=== PATIENT | male | born 1950 | race Caucasian/White ===

== ENCOUNTER 2019-02-23 13:49 | Inpatient (IN) ==
[2019-02-23 15:07] LABS: BASO# 0.03 X1000 (0.0-0.2); BASO% 0.2 % (0.0-0.8); EOS# 0.15 X1000 (0.0-0.7); EOS% 1.1 % (0.0-10.0); HEMATOCRIT 44.1 % (42.0-52.0); HEMOGLOBIN 15.1 g/dL (14.0-18.0); IMM GRAN# 0.06 X1000 (0.0-0.04); IMM GRAN% 0.4 % (0.0-0.5); LYMPH# 1.06 X1000 (1.2-3.4); LYMPH% 7.8 % (20.5-51.1); MCH 29.2 PG (27-31); MCHC 34.2 g/dL (33-37); MCV 85.1 FL (81-99); MONO% 5.9 % (1.7-9.3); MPV 10.8 FL (7.4-10.4); NEUT# 11.54 X1000 (1.4-6.5); NEUT% 84.6 % (42.2-75.2); PLT 286 X1000 (130-400); RBC 5.18 XMIL (4.7-6.1); RDW 14.6 % (11.5-14.5); WBC 13.64 X1000 (4.8-10.8)
[2019-02-23 15:23] LABS: INR 0.98; PROTIME 13.5 Seconds (11.0-16.0)
[2019-02-23 15:24] LABS: PTT 29.2 Seconds (22.3-41.8)
[2019-02-23 15:27] LABS: AGAP 13; ALKALINE PHOSPHATASE 91 U/L (32-122); BUN 16 mg/dL (8-22); CALCIUM 9.9 mg/dL (8.8-10.2); CHLORIDE 91 mmol/L (98-107); COSMO 271; CREATININE 0.9 mg/dL (0.7-1.2); ESTIMATED GFR > 60; GLUCOSE 155 mg/dL (70-104); GOT 17 U/L (10-34); GPT 16 U/L (10-44); POTASSIUM 3.4 mmol/L (3.5-5.1); SODIUM 133 mmol/L (136-145); TCO2 29 mmol/L (25-35); TOTAL PROTEIN 7.6 g/dL (6.3-8.3)
[2019-02-23 15:58] LABS: BILIRUBIN URINE NEGATIVE (NEGATIVE); BLOOD URINE NEGATIVE (NEGATIVE); CLARITY CLEAR (CLEAR); COLOR YELLOW; GLUCOSE URINE NEGATIVE (NEGATIVE); KETONE URINE TRACE mg/dL (NEGATIVE); LEUKOCYTES URINE TRACE (NEGATIVE); NITRITE URINE NEGATIVE (NEGATIVE); PROTEIN URINE 1+(30 mg/dL) mg/dL (NEGATIVE); UROBILINOGEN URINE NORMAL
--- NOTE | 2019-02-23 16:07 | Diag Imaging Result Doc PS360 ---
EXAM: CT ABD/PELVIS W/IV CONT ONLY HISTORY: colitis TECHNIQUE: CT abdomen and pelvis with intravenous contrast COMPARISON: 08/13/2012 FINDINGS: No pleural effusions. The gallbladder has been removed. Mild fatty infiltration of the liver. Normal spleen and pancreas. There are surgical clips in the right adrenal bed. There is a 1.5 cm left adrenal nodule. There are small renal cysts. No hydronephrosis. Prominent atherosclerosis. The entire colon is distended with fluid and air. There is a left periumbilical hernia containing small bowel loops. One of the loops entering this is not dilated where is the other adjacent loops aren't dilated. No definite wall thickening. The distal small bowel loops are not distended. No abscess. IMPRESSION: At least partial small bowel obstruction and possible incarceration within the hernia in the left lower quadrant. This report was discussed with Mitchel Wheeler in the emergency room on 02/23/2019 at 4:05 PM and was readback. This exam was performed using automated exposure control, adjustment of mA or kV according to patient size, and/or use of iterative reconstruction technique. Electronically signed by Tim Banda 02/23/2019 4:04 PM
[2019-02-23 16:11] LABS: URINE SOURCE CLEAN CATCH
[2019-02-23 16:13] LABS: URINE BACTERIA NEGATIVE /HFP; URINE CAST GRANULAR PRESENT /LPF; URINE CRYSTAL NONE SEEN /HPF; URINE EPITHELIAL CELLS <10 /HPF (<10); URINE RBC <10 /HPF (<10); URINE YEAST NONE SEEN /HPF
[2019-02-23] MEDS ORDERED: 1/2 NS + KCL 20 MEQ 1,000 ML IV SCH (20:00)
[2019-02-23] MEDS: NORCO-10 PO PRN (20:17)
[2019-02-24] MEDS ORDERED: CALMOSEPTINE OINTMENT TOP PRN (00:38)
[2019-02-24] MEDS: NORCO-10 PO PRN ×3 (04:30→20:07)
--- NOTE | 2019-02-24 10:55 | EKG Report ---
Test Performed on : 02/23/2019 8:38:58 PM Test Reason : HTN Blood Pressure : / mmHG Vent. Rate : 116 BPM Atrial Rate : 117 BPM P-R Int : 230 ms QRS Dur : 108 ms QT Int : 370 ms P-R-T Axes : 050 009 053 degrees QTc Int : 514 ms Undetermined rhythm Otherwise normal ECG When compared with ECG of 07-AUG-2012 06:53, Current undetermined rhythm precludes rhythm comparison, needs review Non-specific change in ST segment in Lateral leads T wave inversion no longer evident in Inferior leads Nonspecific T wave abnormality now evident in Lateral leads Confirmed by Chun BONE, Derick Dozier ([id number]) on 02/25/2019 8:20:21 AM
[2019-02-24] MEDS ORDERED: XENADERM OINTMENT TOP SCH (14:00)
--- NOTE | 2019-02-24 14:41 | INFECTIOUS DISEASE CONSULT REP ---
DATE: 02/24/2019 CONCLUSION: The patient has cellulitis of both legs. The left leg seems to be more involved than the right leg. The patient I think also suffers from peripheral vascular disease. The patient's leg cellulitis has gotten worse in the past month. RECOMMENDATIONS: I have ordered Ancef 2 g IV every 8 hours. I told the patient to elevate his legs as much as possible. PRESENT ILLNESS: The patient says approximately a month ago he started having increasing erythema and pain in his left leg to a much greater amount than the right leg. He has had areas that were draining and now brown eschars are present on the left leg. The patient has been admitted to the hospital by Dr. Cline. RECOMMENDATIONS: I have started the patient on Ancef 2 g IV every 8 hours. I told the patient to elevate his legs as much as possible. Laboratory studies show CBC with a white count of 13,640, hemoglobin 15.1 and platelet count 286,000. Creatinine is 0.9. GFR is greater than 60. Liver function studies are normal. CT scan of the abdomen and pelvis shows partial small bowel obstruction and partial incarceration of the hernia in the left lower quadrant. PAST MEDICAL HISTORY/REVIEW OF SYSTEMS: Eyes and ears: Patient has decreased hearing. He tells me his vision is okay. Neck: No stiffness. Respiratory: No cough or dyspnea. Cardiac: No chest pain or palpitations. GI: No nausea, vomiting, or diarrhea. The patient told me that he has a long-term problem with constipation. Genitourinary: No dysuria or flank pain. Integument: Patient has developed increasing erythema as compared to the right leg. Neurologic: The patient has not had seizures. The patient has decreased history of his medical condition. PREVIOUS HOSPITALIZATIONS AND OPERATIONS: He has had a partial colectomy. MEDICAL DISEASES: Positive for hypertension and gastroesophageal reflux disease. INFECTIOUS DISEASE HISTORY: Negative for pneumonia and UTI. FAMILY HISTORY: Positive for peripheral vascular disease and cancer. SOCIAL HISTORY: [place] . He has a dog as a pet. The patient smokes cigarettes but he does not drink alcoholic beverage or use illicit drugs. ALLERGIES: His chart lists no known drug allergies. HOME MEDICATIONS: Include Elavil, buspirone, Neurontin, hydrocodone, omeprazole and triamterene/hydrochlorothiazide. PHYSICAL EXAMINATION: Vital Signs: The temperature is 98.5 degrees, pulse 115, respirations 18, blood pressure 146/112. The patient weighs 231 pounds. General: This is an obese elderly male. He is in no acute distress. Head/eyes/ears/nose/throat: He is edentulous. He can hear my spoken words. He can see near objects. Does not have any white coating on his tongue. Neck: There is no pain when he moves his neck. Lungs: Clear to auscultation. Cardiovascular: Heart rate is irregular. Abdomen: Protuberant but soft and nontender. Extremities: The patient's left leg was more erythematous than the right leg. There also was dry brown eschars on the left leg. Neurologic: The patient is awake. He can move his extremities. There is no tremor. His memory as regarding his medical history was decreased. Thank you for the consult. cc: MD Rudy Baires MD MTDKathleen
[2019-02-24] MEDS: KEFZOL 2 GM/D5W 2 GM/50 ML IVPB IV SCH (15:34)
[2019-02-24] MEDS ORDERED: LASIX PO PRN (19:30)
[2019-02-24] MEDS ORDERED: KLOR-CON PO PRN (19:30)
[2019-02-24] MEDS: BUSPAR PO SCH (20:09)
[2019-02-24] MEDS: ROBAXIN PO SCH (20:09)
--- NOTE | 2019-02-24 20:21 | GASTROENTEROLOGY CONSULTATION ---
DATE: 02/24/2019 REASON FOR CONSULTATION: hemorrhoids, history of TVA s/p left hemicolectomy HPI: Mr. Clark is a 68 year old man with history of HTN, HLD, GERD, obesity, h/o pheochromocytoma s/p right adrenalectomy (1999), CCY, TVA s/p left hemicolectomy (2010) c/b anastomotic stricture requiring ex-lap and revision (2011) who presented with symptomatic hemorrhoids. The patient reports having constipation with mild straining and perianal tenderness and bleeding from external hemorrhoids for "a long while". He reports having a bowel movement once daily. No N/V/F, CP, SOB, melena. He takes Clearlax at home, which helps. He has not tried any treatment for his hemorrhoids. He reports that his last colonoscopy was done prior to his last surgery in 2011. He was followed by Dr. Torrez as outpatient. Of note, patient also had had RLE ulceration/wound and leg discoloration for the last 5-6 weeks. ROS: as per HPI, otherwise 12 point ROS negative PMH: HTN, HLD, GERD, obesity, h/o pheochromocytoma h/o TVA, tobacco abuse, remote h/o ETOH abuse with DTs PSH: CCY, right adrenalectomy (1999), s/p left hemicolectomy (2010), enterotomy, ex-lap and colo-colonic anastomosis revision (2011) FH: No FHx of GI malignancies SH: smokes 1ppd, prior ETOH abuse; no drugs MEDS: potassium, methocarbamol, nystatin ointment, miralax, Spiriva, gabapentin, triamcinolone, fluconazole, furosemide, hydrocodone/APAP, Elavil, omeprazole, buspirone, triamterene, hydrochlorothiazide. ALL: NKDA PE: VS: T 98.9 HR 98 RR 15 BP 152/80 O2 sat 94% GEN: awake, alert, NAD HEENT: anicteric, MMM NECK: thick neck, no jvd CV: RRR, no mrg PULM: CTAB, no wheezing ABD: mildline exlap scar, left lower abdominal wall ventral hernia that is nontender, abdomen mildly distended and tympanic, BS present, NT, no ascites EXT: b/l LEs cool to touch, L>R with left purplish discoloration with large ulceration that well-demarcated on the inner leg concerning for ischemia NEURO: nonfocal RECTAL: medium size non-thrombosed external hemorrhoids that are exquisitely tender without evidence of anal fissure. Unable to do BERTHA secondary to pain. no blood LABS: Na 133 K 3.4 Cl 91 BUN 16 glu 155 K 3.4 CO2 29 Cr 0.9 WBC 13.6 Hgb 15.1 plts 286 lactate 2.0 LFTs WNL IMAGING: EXAM: CT ABD/PELVIS W/IV CONT ONLY HISTORY: colitis TECHNIQUE: CT abdomen and pelvis with intravenous contrast COMPARISON: 08/13/2012 FINDINGS: No pleural effusions. The gallbladder has been removed. Mild fatty infiltration of the liver. Normal spleen and pancreas. There are surgical clips in the right adrenal bed. There is a 1.5 cm left adrenal nodule. There are small renal cysts. No hydronephrosis. Prominent atherosclerosis. The entire colon is distended with fluid and air. There is a left periumbilical hernia containing small bowel loops. One of the loops entering this is not dilated where is the other adjacent loops aren't dilated. No definite wall thickening. The distal small bowel loops are not distended. No abscess. IMPRESSION: At least partial small bowel obstruction and possible incarceration within the hernia in the left lower quadrant. A/P: Mr. 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 CTAP shows diffuse dilated colon and periumbilical hernia containing SB. Patient does not have obstructive symptoms and primarily is concerned about his hemorrhoids. He also has leukocytosis likely from ischemic LLE with ulceration. ID consulted and patient is on antibiotics #Dilated colon: concerning for colo-colonic pseudo-obstruction - recommend miralax BID, trending abdominal exam #Symptomatic hemorrhoids - recommend topical hydrocortisone BID - bowel regimen as above, avoid constipation, discourage prolonged toileting, straining - surgery following #History of TVA: previously resected - patient will need surveillance colonoscopy as outpatient when acoute issues resolve; - no evidence of anemia #LLQ ulceration: 2/2 ischemic limb - defer mgmt to surgery - ID following #Leukocytosis: likely from wound Thank you for this consult. Will follow with you cc: Rudy Cline MD MTDD
[2019-02-24] MEDS ORDERED: NORCO-10 PO SCH (21:00)
[2019-02-25] MEDS: KEFZOL 2 GM/D5W 2 GM/50 ML IVPB IV SCH ×4 (00:34→16:49)
[2019-02-25] MEDS: KENALOG 0.1% CREAM TOP SCH ×3 (00:47→21:50)
[2019-02-25] MEDS: MYCOSTATIN OINTMENT TOP SCH ×3 (00:48→22:24)
[2019-02-25] MEDS: NORCO-10 PO PRN ×5 (01:49→22:23)
[2019-02-25] MEDS: PRILOSEC PO SCH (06:53)
[2019-02-25] MEDS ORDERED: MIRALAX PO SCH (09:00)
[2019-02-25] MEDS: DIFLUCAN PO SCH (09:07)
[2019-02-25] MEDS: DYAZIDE PO SCH (09:07)
[2019-02-25] MEDS: NEURONTIN PO SCH ×3 (09:07→18:18)
[2019-02-25] MEDS: BUSPAR PO SCH ×2 (09:07→22:23)
[2019-02-25] MEDS: MIRALAX PO SCH ×2 (09:08→22:24)
--- NOTE | 2019-02-25 10:34 | INFECTIOUS DISEASE PROGRESS NO ---
DATE: 02/25/2019 PRESENT ILLNESS: Mr. Clark is being treated for cellulitis of his lower extremities with the left leg worse than the right. MEDICATIONS: He has been started on Ancef 2 g IV every 8 hours. PHYSICAL EXAMINATION: Vital Signs: Temperature is 98.7 degrees, pulse rate 69, respiratory rate 20, blood pressure 142/90, O2 saturation is 97% on room air. General: This is a morbidly obese, chronically ill-appearing, elderly gentleman. He is sitting up in the chair, currently in no acute distress. HEENT: Atraumatic, normocephalic. Oral mucous membranes are pink and moist. Conjunctivae are pink. Neck: Supple. Trachea is midline. Cardiovascular: Heart rate is regular. Respiratory: Lung sounds are clear to auscultation bilaterally. Abdomen: Soft, obese, nontender on palpation. Bowel sounds are active. Neurologic: He is awake, alert, oriented, and able to move all extremities independently. Integumentary: He has an erythematous rash noted to his bilateral lower extremities. The rash to the left starts at the knee down with some open areas that are scabby abrasions to the medial calf. There is less erythema discoloration on the right, with small areas of scabby abrasions. LABORATORY AND X-RAY: None available today. Blood and urine cultures have been taken. Blood work is preliminary. Urine shows mixed marito on the final report. No imaging reports today. ASSESSMENT AND PLAN: Mr. Clark is being treated for bilateral lower extremity cellulitis using Ancef, which we will continue at this time. There has been an order put in for arterial studies of his lower extremities and he has been followed by Dr. Hoskins. He has been instructed to keep his lower extremities elevated as often as possible. However, he states the pain is worse with elevation. I have gone ahead and put in blood work for in the morning. These plans have been discussed with and recommended by Dr. Newsome. COMORBIDITIES: for Mr. Clark include that he is morbidly obese and elderly with gastroesophageal reflux disease and cigarette smoking. Dictated by JAIR Huertas for Rodolfo Newsome MD cc: MD Rudy Baires MD [facility]ERKathleen
[2019-02-25] MEDS: HYDROCORTISONE 1% CREAM TOP SCH (12:40)
[2019-02-25] MEDS: ROBAXIN PO SCH (22:24)
--- NOTE | 2019-02-25 23:48 | PROVIDER PROGRESS NOTE ---
Progress Note SUBJECTIVE: No acute overnight events. Afebrile. No N/V/F, CP, SOB. He reports good bowel movement yesterday without rectal bleeding. He continues to complain of hemorrhoid discomfort. No abdominal pain. Tolerating clear liquid diet. OBJECTIVE: Last Vital Signs Temp 98.3 F 02/25/19 22:46 Pulse 49 L 02/25/19 22:46 Resp 18 02/25/19 22:46 BP 154/57 02/25/19 22:46 Pulse Ox 98 02/25/19 22:46 Height 5 ft 2 in Weight 231 lb 11.2 oz GEN: awake, alert, NAD HEENT: anicteric, MMM NECK: thick neck, no jvd CV: RRR, no mrg PULM: CTAB, no wheezing ABD: mildline exlap scar, left lower abdominal wall ventral hernia that is nontender, abdomen mildly distended and tympanic, BS present, NT, no ascites EXT: b/l LEs cool to touch, L>R with left purplish discoloration with large ulceration that well-demarcated on the inner leg concerning for ischemia NEURO: nonfocal LABS: none IMAGING: A/P: Mr. 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 CTAP shows diffuse dilated colon and periumbilical hernia containing SB without definitive obstruction. ID following for LLE infection #Dilated colon: concerning for colo-colonic pseudo-obstruction - continue miralax BID, trending abdominal exam - obtain KUB in AM to reassess -start GI soft diet #Symptomatic hemorrhoids - continue topical hydrocortisone BID - bowel regimen as above, avoid constipation, discourage prolonged toileting, straining - surgery following #History of TVA: previously resected - patient will need surveillance colonoscopy as outpatient when acute issues resolve - no evidence of anemia - labs in AM #LLQ ulceration: 2/2 ischemic limb - defer mgmt to surgery - ID following #Leukocytosis: likely from wound; no labs today Will follow with you
[2019-02-26] MEDS: HYDROCORTISONE 1% CREAM TOP SCH ×2 (00:39→12:00)
[2019-02-26] MEDS: KEFZOL 2 GM/D5W 2 GM/50 ML IVPB IV SCH ×4 (00:58→23:39)
[2019-02-26] MEDS: PRILOSEC PO SCH (06:35)
[2019-02-26] MEDS: NORCO-10 PO PRN ×4 (06:38→19:39)
[2019-02-26 07:20] LABS: BASO# 0.02 X1000 (0.0-0.2); BASO% 0.3 % (0.0-0.8); EOS# 0.18 X1000 (0.0-0.7); EOS% 2.7 % (0.0-10.0); HEMATOCRIT 42.7 % (42.0-52.0); HEMOGLOBIN 14.4 g/dL (14.0-18.0); IMM GRAN# 0.05 X1000 (0.0-0.04); IMM GRAN% 0.7 % (0.0-0.5); LYMPH# 1.14 X1000 (1.2-3.4); LYMPH% 16.8 % (20.5-51.1); MCH 28.9 PG (27-31); MCHC 33.7 g/dL (33-37); MCV 85.7 FL (81-99); MONO% 8.9 % (1.7-9.3); MPV 10.8 FL (7.4-10.4); NEUT# 4.78 X1000 (1.4-6.5); NEUT% 70.6 % (42.2-75.2); PLT 250 X1000 (130-400); RBC 4.98 XMIL (4.7-6.1); RDW 14.5 % (11.5-14.5); WBC 6.77 X1000 (4.8-10.8)
[2019-02-26 07:38] LABS: AGAP 13; BUN 8 mg/dL (8-22); CALCIUM 9.4 mg/dL (8.8-10.2); CHLORIDE 95 mmol/L (98-107); COSMO 272; CREATININE 0.7 mg/dL (0.7-1.2); ESTIMATED GFR > 60; GLUCOSE 93 mg/dL (70-104); POTASSIUM 2.9 mmol/L (3.5-5.1); SODIUM 137 mmol/L (136-145); TCO2 29 mmol/L (25-35)
[2019-02-26] MEDS: DIFLUCAN PO SCH (08:17)
[2019-02-26] MEDS: BUSPAR PO SCH ×2 (08:17→21:26)
[2019-02-26] MEDS: DYAZIDE PO SCH (08:17)
[2019-02-26] MEDS: NEURONTIN PO SCH ×3 (08:17→21:26)
[2019-02-26] MEDS ORDERED: POTASSIUM CHLORIDE 10% LIQUID PO SCH (09:00)
[2019-02-26] MEDS ORDERED: LOVENOX 1 MG/KG SUBQ SCH (09:30)
--- NOTE | 2019-02-26 10:52 | Diag Imaging Result Doc PS360 ---
EXAM: KUB ABDOMEN HISTORY: evaluate for constipation or obstruction TECHNIQUE: Abdomen four views COMPARISON: None. FINDINGS: There are multiple air distended loops of bowel throughout the abdomen. Long-standing arthritic changes to the hips and degenerative changes to the spine. Moderate to prominent atherosclerosis. There are multiple surgical clips in the right upper quadrant. IMPRESSION: Findings suspicious for a distal obstruction. Electronically signed by Tim Banda 02/26/2019 10:49 AM
[2019-02-26] MEDS: MIRALAX PO SCH ×2 (11:12→21:27)
[2019-02-26] MEDS: METAMUCIL POWDER PACKET PO SCH ×2 (11:12→21:27)
[2019-02-26] MEDS: POTASSIUM CHLORIDE 10% LIQUID PO SCH ×3 (11:12→21:27)
[2019-02-26] MEDS: LOVENOX SUBQ SCH (11:13)
--- NOTE | 2019-02-26 13:02 | INFECTIOUS DISEASE PROGRESS NO ---
DATE: 02/26/2019 PRESENT ILLNESS: The patient has cellulitis of both of his legs. MEDICATIONS: This is day 1 of treatment with cefazolin. PHYSICAL EXAMINATION: Vital Signs: Temperature is 98.9 degrees, pulse 52, respirations 16, blood pressure 152/67. General: This is a morbidly obese, chronically ill-appearing, elderly gentleman. He is in no acute distress. Head, eyes, ears, nose, and throat: He can hear my spoken words and see near objects. He does not have any white patches on his tongue. Neck: He does not comply complain of any pain when he moves his neck. Lungs: Clear to auscultation. Cardiovascular: Heart rate is regular. Abdomen: Soft and protuberant. It is not tender. Extremities: The patient still has erythema and edema of both legs with some small eschars present as well. Neurologic: The patient is awake. He can move his extremities. He is barely able to walk on his own. There is no tremor. LAB AND X-RAY: CBC shows a white count of 6670, hemoglobin 14.4, and platelet count 250,000. Creatinine is 0.7, GFR is greater than 60. Urine culture is mixed. Blood cultures are sterile. The patient's urine grew a mixed marito. Blood cultures are sterile after 48 hours. ASSESSMENT AND PLAN: The patient has bilateral leg cellulitis. We have requested him several times to keep his legs elevated but he has been reluctant to do it. I am going to continue with cefazolin. COMORBIDITIES: He is morbidly obese. He is elderly. He has gastroesophageal reflux disease, and he continues to smoke cigarettes. cc: MD Rudy Baires MD
--- NOTE | 2019-02-26 13:26 | GASTROENTEROLOGY PROGRESS NOTE ---
DATE: 02/26/2019 SUBJECTIVE: The patient resting in chair. He is eating his breakfast. He complains of pain at the anus, which he attributes to hemorrhoids. He also has abdominal discomfort which is stable. He has pain in his left leg, which is stable. The patient denies any fevers, rigors, or chills. He denies any blood in the stools today. His last bowel movement was this morning. OBJECTIVE: Vital signs: Temperature 98.9, pulse rate 52, respiratory rate 16, blood pressure 152/67, saturating 98% on room air. Weight: Body weight of 231 pounds 11.2 ounces. BMI of 42 kg/m2. General: Patient is morbidly obese. Sitting in chair, in no acute distress. HEENT: No pallor. No icterus. Pupils equal, reactive to light. Neck: Supple. Abdomen: Obese, discomfort in the umbilical region. No rebound or guarding. He has a left lower abdominal wall ventral hernia that is nontender. Extremities: He has discoloration of the left lower extremity. It appears to be purplish discoloration with a large ulceration that is well demarcated on the inner leg, concerning for ischemia. Neurological: Alert, awake, oriented x3. DIAGNOSTIC STUDIES: Hemoglobin 14.4, hematocrit 42.7, white count 6.7, platelet count 250,000. Sodium 137, potassium 2.9, chloride 95, bicarbonate 29, anion gap of 13, BUN of 8, creatinine 0.7, glucose of 93, calcium 9.4, AST 17, ALT 16, alkaline phosphatase 91, total protein 7.6, albumin of 4, prealbumin of 14.8. Urine culture showing mixed marito. Blood culture x2 negative at 48 hours from 02/23/2019. IMPRESSION AND PLAN: 1. Abdominal wall hernia. This is being monitored per Dr. Cline. 2. Ischemic lower extremity. Dr. Cline is managing. He is awaiting consult from Dr. Hoskins. 3. History of tubulovillous adenoma requiring colon resection many years ago. He will need surveillance colonoscopy when acute issues have resolved. 4. Symptomatic hemorrhoids causing anal discomfort. We will continue on hydrocortisone 2.5% cream per rectal b.i.d. We will start him on Metamucil 1 tablespoon p.o. b.i.d. He will continue MiraLAX as well. He was counseled to avoid straining. 5. Dilated colon on CT scan, likely from colonic pseudoobstruction. We will continue MiraLAX b.i.d. We will continue on GI soft diet. He is moving his bowels. A KUB for today has been ordered, but has not been done yet. 6. Obesity. Patient counseled to lose weight. 7. Smoker. Patient counseled to quit smoking. 8. Gastrointestinal prophylaxis with Prilosec once daily. 9. Deep vein thrombosis prophylaxis with Lovenox. He is on full-strength Lovenox 100 mg subcutaneous daily. 10. He is also on antibiotics per the primary team and the infectious disease team. The above plan of care was discussed with the patient, and all questions were answered. Please call us with any further questions. I also spoke with Dr. Cline. cc: MD Rudy Hinton MD Zz Unknown
[2019-02-26] MEDS: D5 1/2 NS 1,000 ML IV SCH (14:08)
[2019-02-26] MEDS: KENALOG 0.1% CREAM TOP SCH ×2 (15:34→23:39)
[2019-02-26] MEDS: MYCOSTATIN OINTMENT TOP SCH ×2 (15:35→23:38)
[2019-02-26] MEDS: ROBAXIN PO SCH (21:26)
[2019-02-26] MEDS: ELAVIL PO PRN (21:41)
[2019-02-27] MEDS: HYDROCORTISONE 1% CREAM TOP SCH ×2 (02:03→12:00)
[2019-02-27] MEDS: NORCO-10 PO PRN ×4 (04:37→20:55)
[2019-02-27] MEDS: PRILOSEC PO SCH ×2 (04:37→10:58)
--- NOTE | 2019-02-27 08:10 | VASCULAR LAB ---
PROCEDURE NAME: Arterial Bilateral Legs - 02/24/2019 MEDICAL TRANSCRIPTION RADIOLOGY: [place] REQUESTING PHYSICIAN: Dr. Cline INDICATION: Ulcers, redness of left leg. FINDINGS: Brachial on the right is 160, on the left is 162. Low thigh on the right is 116, on the left is 133. Calf on the right is 87, left is 115. DP on the right is 86, on the left is 99. PT on the right is absent, on the left is 93. Toe pressure on the right is 57, on the left is 64. DAYAN on the right is 0.53, on the left is 0.61. Total pressure on the right is 0.35, on the left is 0.40. IMPRESSION: There is significant depression in the flow noted at the level of the calf suggesting a distal SFA or popliteal lesion with blunting of the waveforms distally. There is evidence of more mild disease proximally, but the depression of the waveforms at the ankles would correlate to a moderate atherosclerotic burden and would potentially impede wound healing. I would recommend correlation with angiography as clinically indicated. cc: MD Rudy Ledesma MD
[2019-02-27] MEDS: KEFZOL 2 GM/D5W 2 GM/50 ML IVPB IV SCH (09:10)
[2019-02-27] MEDS: DYAZIDE PO SCH (09:11)
[2019-02-27] MEDS: DIFLUCAN PO SCH (09:11)
[2019-02-27] MEDS: NEURONTIN PO SCH ×3 (09:11→20:49)
[2019-02-27] MEDS: BUSPAR PO SCH ×2 (09:11→20:49)
[2019-02-27] MEDS: LOVENOX SUBQ SCH (09:12)
[2019-02-27] MEDS: METAMUCIL POWDER PACKET PO SCH ×2 (09:12→20:49)
[2019-02-27] MEDS: MIRALAX PO SCH ×2 (09:12→20:49)
--- NOTE | 2019-02-27 10:02 | PROVIDER PROGRESS NOTE ---
Progress Note SUBJECTIVE: No acute overnight events. Afebrile. No N/V/F, SOB, CP. He reports LLE pain. He also complains of perianal pain secondary to hemorrhoids, which is making if difficult for him have bowel movements. He had normal BM yesterday. He reports not receiving topical therapy for hemorrhoids. OBJECTIVE: Last Vital Signs Temp 97.5 F L 02/27/19 07:31 Pulse 54 L 02/27/19 07:31 Resp 18 02/27/19 07:31 BP 147/72 02/27/19 07:31 Pulse Ox 96 02/27/19 07:31 Height 5 ft 2 in Weight 231 lb 11.2 oz GEN: awake, alert, NAD HEENT: anicteric, MMM NECK: thick neck, no jvd CV: RRR, no mrg PULM: CTAB, no wheezing ABD: mildline exlap scar, left lower abdominal wall ventral hernia that is nontender, abdomen mildly distended and tympanic, BS present, NT, no ascites EXT: b/l LEs cool to touch, L>R with left purplish discoloration with large ulceration that well-demarcated on the inner leg NEURO: nonfocal LABS: none today IMAGING: A/P: Mr. 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 CTAP shows diffuse dilated colon concerning for distal obstruction. ID following for LLE infection. Patient has distal flow in LLE seen on DAYAN. #Dilated colon: concerning for colo-colonic pseudo-obstruction - continue miralax BID, trending abdominal exam -cont GI soft diet #Symptomatic hemorrhoids - patient needs topical hydrocortisone BID for hemorrhoids. He has not been getting it - bowel regimen as above, avoid constipation, discourage prolonged toileting, straining - surgery following - will consider sigmoidoscopy if patient does not have improvement over the weekend #History of TVA: previously resected - patient will need surveillance colonoscopy as outpatient when acute issues resolve - no evidence of anemia - labs in AM #LLQ ulceration: 2/2 ischemic limb - defer mgmt to surgery - ID following #Leukocytosis: 2/2 LLE infection; normal WBC yesterday Will follow with you. Please call with questions
[2019-02-27] MEDS: D5 1/2 NS 1,000 ML IV SCH (17:56)
[2019-02-27] MEDS: ELAVIL PO PRN (20:49)
[2019-02-27] MEDS: ROBAXIN PO SCH (20:49)
[2019-02-27] MEDS: KENALOG 0.1% CREAM TOP SCH (20:57)
[2019-02-28] MEDS: MYCOSTATIN OINTMENT TOP SCH ×3 (04:09→20:32)
[2019-02-28] MEDS: HYDROCORTISONE 1% CREAM TOP SCH ×3 (04:10→23:44)
[2019-02-28] MEDS: NORCO-10 PO PRN ×4 (07:21→20:31)
[2019-02-28] MEDS: PRILOSEC PO SCH (07:46)
[2019-02-28] MEDS: MIRALAX PO SCH ×2 (09:46→20:31)
[2019-02-28] MEDS: BUSPAR PO SCH ×2 (09:46→20:30)
[2019-02-28] MEDS: DIFLUCAN PO SCH (09:46)
[2019-02-28] MEDS: NEURONTIN PO SCH ×3 (09:46→20:30)
[2019-02-28] MEDS: DYAZIDE PO SCH (09:46)
[2019-02-28] MEDS: METAMUCIL POWDER PACKET PO SCH ×2 (09:46→20:31)
[2019-02-28] MEDS: LOVENOX SUBQ SCH (09:46)
[2019-02-28] MEDS: KENALOG 0.1% CREAM TOP SCH ×2 (09:47→20:32)
[2019-02-28] MEDS: KEFZOL 2 GM/D5W 2 GM/50 ML IVPB IV SCH ×2 (09:57→18:14)
--- NOTE | 2019-02-28 12:16 | Carotid Study ---
DATE: 02/24/2019 PROCEDURE: Carotid duplex imaging. REFERRING PHYSICIAN: Dr. Cline INTERPRETING PHYSICIAN: Dr. Marks TECH: [place] INDICATIONS: Peripheral vascular disease, high risk for carotid stenosis. OBSERVED DATA RIGHT LEFT Brachial Blood Pressure Carotid Pulse Bruits: Carotid/Sub DIAGRAM OF ULTRASOUND IMAGING R L RIGHT INT EXT INT EXT LEFT Saúl (cm/s) Saúl (cm/s) Subclavian 83/0 Subclavian 119/0 CCA Proximal 141/17 CCA Proximal 149/16 CCA Distal 103/14 CCA Distal 97/16 Bulb 86/18 Bulb 99/14 ICA Proximal 69/15 ICA Proximal 113/16 ICA Mid 82/20 ICA Mid 90/19 ICA Distal 58/17 ICA Distal 108/22 ECA 146/7 ECA 139/10 Vertebral 63/17 A Vertebral 50/8 A ICA/CCA Ratio 0.5 ICA/CCA Ratio 0.75 % Stenosis 0 to 39 % Stenosis 40 to 59 PHYSICIAN INTERPRETATION: There are no obvious atherosclerotic changes noted on the right. The internal carotid arteries are tortuous bilaterally. In the left, although no visible atherosclerotic changes on the study, there is an elevation in the proximal internal carotid artery at 113 cm per second that would technically correlate to a 40% to 59% stenosis. However, I suspect this was related to tortuosity with no significant atherosclerotic changes. I would recommend continued surveillance of this. cc: MD Rudy Ledesma MD
[2019-02-28] MEDS: ZOFRAN IV PRN (14:45)
--- NOTE | 2019-02-28 14:57 | INFECTIOUS DISEASE PROGRESS NO ---
DATE: 02/28/2019 PRESENT ILLNESS: The patient has cellulitis of both legs. MEDICATIONS: This is day 3 of treatment with cefazolin. PHYSICAL EXAMINATION: Vital Signs: Temperature is 97.6 degrees, pulse 113, respirations 20, blood pressure 159/82. General: This is a morbidly obese, chronically ill-appearing, elderly male. He is in no acute distress. Head, eyes, ears, nose, and throat: He can hear my spoken words and see near objects. He does not have any white coating on his tongue. Neck: He does not complain of pain when he moves his neck. Lungs: Clear to auscultation. Cardiovascular: Heart rate is regular. Abdomen: Soft and somewhat protuberant. It is not tender. Extremities: The patient continues to have erythema, edema, and he also has some eschars which are dry. He continues not to elevate his legs, even though I have discussed with him that it would be best to elevate his legs to get rid of the cellulitis he has in them. Neurologic: The patient is awake. He can move his extremities. There is no tremor. LAB AND X-RAY: CBC shows a white count of 6770, hemoglobin 14.4, platelet count 250,000. Creatinine is 0.9. GFR is greater than 60. Urine shows a mixed growth. Blood cultures are sterile. ASSESSMENT AND PLAN: Patient has bilateral leg cellulitis. I am going to continue Ancef and I explained to him that it would be better to elevate his legs rather than not elevating them at all. COMORBIDITIES: Morbid obesity, the patient is elderly, he has gastroesophageal reflux disease and he is a cigarette smoker. cc: MD Rudy Baires MD
[2019-02-28] MEDS: ROBAXIN PO SCH (20:30)
[2019-03-01] MEDS: KEFZOL 2 GM/D5W 2 GM/50 ML IVPB IV SCH ×4 (00:52→17:00)
[2019-03-01] MEDS: NORCO-10 PO PRN ×4 (00:54→20:52)
[2019-03-01 06:52] LABS: BASO# 0.02 X1000 (0.0-0.2); BASO% 0.1 % (0.0-0.8); EOS# 0.13 X1000 (0.0-0.7); EOS% 0.9 % (0.0-10.0); HEMATOCRIT 43.7 % (42.0-52.0); HEMOGLOBIN 14.4 g/dL (14.0-18.0); LYMPH# 1.06 X1000 (1.2-3.4); LYMPH% 7.3 % (20.5-51.1); MCH 28.6 PG (27-31); MCV 86.9 FL (81-99); MONO# 1.07 X1000 (0.11-0.59); MONO% 7.4 % (1.7-9.3); MPV 11.1 FL (7.4-10.4); NEUT# 12.15 X1000 (1.4-6.5); NEUT% 84.3 % (42.2-75.2); PLT 343 X1000 (130-400); RBC 5.03 XMIL (4.7-6.1); RDW 14.5 % (11.5-14.5); WBC 14.43 X1000 (4.8-10.8)
[2019-03-01 06:58] LABS: ESTIMATED GFR > 60
[2019-03-01 07:06] LABS: AGAP 16; BUN 19 mg/dL (8-22); CALCIUM 10.1 mg/dL (8.8-10.2); CHLORIDE 82 mmol/L (98-107); COSMO 259; CREATININE 1.1 mg/dL (0.7-1.2); GLUCOSE 118 mg/dL (70-104); POTASSIUM 4.7 mmol/L (3.5-5.1); SODIUM 127 mmol/L (136-145); TCO2 29 mmol/L (25-35)
[2019-03-01] MEDS: PRILOSEC PO SCH (07:13)
[2019-03-01] MEDS: DIFLUCAN PO SCH (11:34)
[2019-03-01] MEDS: LOVENOX SUBQ SCH (11:34)
[2019-03-01] MEDS: METAMUCIL POWDER PACKET PO SCH ×2 (11:35→20:52)
[2019-03-01] MEDS: NEURONTIN PO SCH ×3 (11:35→20:52)
[2019-03-01] MEDS: BUSPAR PO SCH ×2 (11:35→20:52)
[2019-03-01] MEDS: MIRALAX PO SCH ×2 (11:35→20:52)
[2019-03-01] MEDS: DYAZIDE PO SCH (11:35)
[2019-03-01] MEDS: MYCOSTATIN OINTMENT TOP SCH ×2 (11:36→21:00)
[2019-03-01] MEDS: HYDROCORTISONE 1% CREAM TOP SCH ×2 (11:36→21:00)
[2019-03-01] MEDS: KENALOG 0.1% CREAM TOP SCH ×2 (11:36→21:00)
--- NOTE | 2019-03-01 12:02 | INFECTIOUS DISEASE PROGRESS NO ---
DATE: 03/01/2019 PRESENT ILLNESS: The patient has bilateral leg cellulitis. MEDICATIONS: The patient has been on cefazolin now for 4 days. PHYSICAL EXAMINATION: Vital Signs: Temperature is 98.8 degrees, pulse 117, respirations 20, blood pressure 125/82. General: This is a morbidly obese, ill-appearing, elderly male. He is in no acute distress. HEENT: He can hear my spoken words and see near objects. He does not have any white patch patches on his tongue. Neck: He does not have any pain with movement of his neck. Lungs: There were scattered rhonchi. Cardiovascular: Heart rate is irregular. Abdomen: Protuberant, but soft and nontender. Extremities: Both legs are less erythematous and edematous. The patient has been lying in his bed today, and I think that is the big factor that has made his legs look much better today. There still are some eschars on the patient's legs. Neurologic: The patient is arousable. He can move his extremities. There is no tremor. LABORATORY DATA: CBC shows a white count of 14,430, hemoglobin 14.4, and platelet count 343,000. Creatinine is 1.1. GFR is greater than 60. ASSESSMENT AND PLAN: The patient has leg cellulitis. I plan to continue with Ancef. Also, I have encouraged the patient to continue to elevate his legs because they look so much better today than they did yesterday because the patient is elevating them. COMORBIDITIES: He is morbidly obese. He is elderly. He has gastroesophageal reflux disease. He is a cigarette smoker. He has chronic leg edema. cc: MD Rudy Baires MD
[2019-03-01] MEDS: ROBAXIN PO SCH (20:52)
[2019-03-02] MEDS: KEFZOL 2 GM/D5W 2 GM/50 ML IVPB IV SCH ×3 (02:30→17:06)
[2019-03-02] MEDS: ZOFRAN IV PRN ×3 (03:25→18:51)
[2019-03-02 03:35] LABS: BASO# 0.03 X1000 (0.0-0.2); BASO% 0.3 % (0.0-0.8); EOS% 0.9 % (0.0-10.0); HEMATOCRIT 41.2 % (42.0-52.0); IMM GRAN# 0.08 X1000 (0.0-0.04); IMM GRAN% 0.7 % (0.0-0.5); LYMPH# 0.75 X1000 (1.2-3.4); LYMPH% 6.6 % (20.5-51.1); MCH 28.6 PG (27-31); MCV 84.1 FL (81-99); MONO# 0.73 X1000 (0.11-0.59); MONO% 6.4 % (1.7-9.3); MPV 10.9 FL (7.4-10.4); NEUT# 9.72 X1000 (1.4-6.5); NEUT% 85.1 % (42.2-75.2); PLT 290 X1000 (130-400); WBC 11.41 X1000 (4.8-10.8)
[2019-03-02 03:37] LABS: INR 1.03; PROTIME 14.3 Seconds (11.0-16.0)
[2019-03-02 03:38] LABS: PTT 33.6 Seconds (22.3-41.8)
[2019-03-02 04:38] LABS: AGAP 13; ALB/GLOB RATIO 1.6; ALBUMIN 3.8 g/dL (3.5-5.0); ALKALINE PHOSPHATASE 93 U/L (32-122); BUN 18 mg/dL (8-22); CALCIUM 9.5 mg/dL (8.8-10.2); CHLORIDE 84 mmol/L (98-107); CK PROFILE 99 U/L (24-204); COSMO 258; CREATININE 0.9 mg/dL (0.7-1.2); ESTIMATED GFR > 60; GLUCOSE 111 mg/dL (70-104); GOT 23 U/L (10-34); GPT < 5 U/L (10-44); POTASSIUM 3.6 mmol/L (3.5-5.1); SODIUM 127 mmol/L (136-145); TCO2 30 mmol/L (25-35); TOTAL BILIRUBIN 0.47 mg/dL (0.20-1.00); TOTAL PROTEIN 6.2 g/dL (6.3-8.3)
[2019-03-02] MEDS: D5 1/2 NS 1,000 ML IV SCH (06:00)
[2019-03-02] MEDS: PRILOSEC PO SCH (06:00)
--- NOTE | 2019-03-02 07:36 | Diag Imaging Result Doc PS360 ---
EXAM: CHEST-1 VIEW INDICATION: Sepsis screen TECHNIQUE: One view COMPARISON: 08/14/2012 FINDINGS: The lungs are grossly clear. There is no discrete pleural fluid collection or pneumothorax. The cardiomediastinal silhouette and central vasculature are grossly unremarkable. IMPRESSION: No evidence of acute pathology by plain radiograph. Electronically signed by Segundo Sifuentes 03/02/2019 7:33 AM
[2019-03-02 08:10] LABS: URINE SOURCE CLEAN CATCH
--- NOTE | 2019-03-02 08:36 | GENERAL SURGERY PROGRESS NOTE ---
DATE: 03/02/2019 Mr. Clark remains in the hospital. I reviewed his FATMATA study from 02/24/2019. His right AB index 0.53 and left is 0.61. There is pulsatile flow to the ankle level. This might be consistent with claudication, but it certainly does not represent a critical limb ischemia. I do not think there is any urgent intervention recommended for his legs. When I saw him in the office, I simply recommended cilostazol twice a day, which he was going to take just prior to his admission the hospital. I would recommend that he proceed with whatever intervention is necessary for his colon. I will follow him up in the future regarding his legs. cc: MD Rudy Raymond MD
[2019-03-02 08:37] LABS: BILIRUBIN URINE NEGATIVE (NEGATIVE); BLOOD URINE NEGATIVE (NEGATIVE); COLOR YELLOW; GLUCOSE URINE NEGATIVE (NEGATIVE); KETONE URINE TRACE mg/dL (NEGATIVE); LEUKOCYTES URINE NEGATIVE (NEGATIVE); NITRITE URINE NEGATIVE (NEGATIVE); PROTEIN URINE TRACE mg/dL (NEGATIVE); SP GRAVITY URINE 1.006; TURBIDITY URINE CLEAR (CLEAR); UROBILINOGEN URINE NORMAL (NORMAL)
[2019-03-02 08:38] LABS: UR EPITHELIAL CELLS <10 /HPF (<10); URINE BACTERIA NEGATIVE /HPF; URINE RBC <10 /HPF (<10); URINE WBC <10 /HPF (<10)
[2019-03-02] MEDS: PROTONIX IV SCH (09:04)
[2019-03-02] MEDS: NEURONTIN PO SCH ×3 (09:08→21:15)
[2019-03-02] MEDS: LOVENOX SUBQ SCH (09:08)
[2019-03-02] MEDS: BUSPAR PO SCH ×2 (09:10→21:15)
[2019-03-02] MEDS: HYDROCORTISONE 1% CREAM TOP SCH ×2 (09:11→21:16)
[2019-03-02] MEDS: DIFLUCAN PO SCH (09:12)
[2019-03-02] MEDS: DYAZIDE PO SCH (09:12)
[2019-03-02] MEDS: MYCOSTATIN OINTMENT TOP SCH ×2 (09:14→21:15)
[2019-03-02] MEDS: KENALOG 0.1% CREAM TOP SCH ×2 (09:14→21:16)
[2019-03-02] MEDS: MIRALAX PO SCH ×2 (09:14→21:11)
[2019-03-02] MEDS: METAMUCIL POWDER PACKET PO SCH ×2 (09:14→21:11)
[2019-03-02] MEDS: NORCO-10 PO PRN (09:19)
--- NOTE | 2019-03-02 12:05 | GASTROENTEROLOGY PROGRESS NOTE ---
DATE: 03/02/2019 SUBJECTIVE: The patient is resting in bed. He is complaining of nausea and vomiting. He threw up multiple times today. This was bilious in color. He denies any vomiting blood. When I went into the room, the patient had just had a recent vomitus which I saw, which was yellowish-green in nature. No blood was noted. The patient had a small bowel movement yesterday. He feels he is constipated. He denies any more blood in the stools. He complains of abdominal pain. PHYSICAL EXAMINATION: Vital Signs: Temperature 98.9 degrees, pulse rate of 99, respiratory rate of 18, blood pressure 130/88, saturating 90% on room air. Body weight of 231 pounds and 11.2 ounces. BMI of 42 kg/m2. General Appearance: The patient is morbidly obese. Sitting in chair, in no acute distress. HEENT: No pallor. No icterus. Neck: Supple. Abdomen: Obese. Discomfort in the periumbilical region. Mild protuberance noted. No guarding or rebound. Extremities: No cyanosis, clubbing. His lower extremity is showing purplish discoloration with a large ulceration, demarcated on the inner leg on the left leg. Neurologic: Alert, awake, oriented x3. LABS: His hemoglobin and hematocrit are 14 and 41.2, white count of 11.41, platelet count of 290,000. INR 1.03, PT of 14.3, PTT of 33.6. Sodium 137, potassium 3.6, chloride of 84, bicarb 39, anion gap of 13, BUN of 18, creatinine 0.9, glucose of 111, calcium is 9.5. Total bilirubin is 0.47, AST 23, ALT less than 5, alkaline phosphatase 93, total protein is 6.2, albumin of 3.8. Lactate of 0.8. Urinalysis showing trace protein and trace ketones. Blood culture x2 negative after 5 days from 02/23/2019. Repeat blood cultures were drawn today. They are currently pending. Urine culture showing mixed marito. Chest x-ray done today showed lungs are grossly clear. There is no discrete pleural fluid collection or pneumothorax. IMPRESSION AND PLAN: 1. Nausea and vomiting. In this regard, we will put a nasogastric tube to help decompress the stomach and once the stomach is decompressed, we will start him on GoLYTELY through the nasogastric tube, and prep him for esophagogastroduodenoscopy and colonoscopy tomorrow by Dr. Thornton. The risks, benefits, indications, and alternatives to those were discussed with the patient and all questions were answered. 2. Constipation. We have kept him on MiraLAX and Metamucil with partial relief. We will evaluate with a colonoscopy tomorrow. 3. 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 We will continue MiraLAX. We will perform the colonoscopy tomorrow as scheduled above. 4. Symptomatic hemorrhoids. He will continue on topical hydrocortisone cream per rectal twice a day. 5. History of a large colon polyp requiring partial colon resection by Dr. Cline many years ago. 6. Ventral hernia. Aware. Being managed by Dr. Cline. 7. Left lower extremity ischemia with ulceration. Dr. Hoskins has seen the patient. 8. Left leg cellulitis. He is on antibiotics, Ancef, with Dr. Newsome. 9. Gastrointestinal prophylaxis with proton pump inhibitor. 10. He is on a therapeutic dose of Lovenox. Dr. Cline will hold the Lovenox for tomorrow morning in order for him to undergo esophagogastroduodenoscopy and colonoscopy, and then restart it on Saturday morning. 11. We will follow along. The above plans were discussed with the patient and all questions were answered. Please call us with any further questions. cc: MD Rudy Hinton MD Faye Wilson, MD Leroy F. Harris, MD Robert C. Walker, MD
--- NOTE | 2019-03-02 12:07 | Diag Imaging Result Doc PS360 ---
EXAM: CHEST/ABD TUBE PLACEMENT INDICATION: NGT insertion confirmation TECHNIQUE: One view COMPARISON: 03/02/2019 FINDINGS: The newly placed NG tube projects well below the diaphragm and is assumed to be in the lumen of the stomach in the expected position. The lungs are overexposed given the focus on the NG tube. There are grossly stable, otherwise. Gas-distended loops of bowel are again identified as on the recent abdominal radiograph dated 02/26/2019. IMPRESSION: Recently placed NG tube in expected position as described. Electronically signed by Segundo Sifuentes 03/02/2019 12:04 PM
[2019-03-02] MEDS ORDERED: GOLYTELY PO ONE (14:00)
--- NOTE | 2019-03-02 15:24 | INFECTIOUS DISEASE PROGRESS NO ---
DATE: 03/02/2019 PRESENT ILLNESS: Patient has bilateral leg cellulitis. MEDICATIONS: The patient is now been on cefazolin for 5 days. PHYSICAL EXAMINATION: Vital Signs: Temperature is 98.9 degrees, pulse 100, respirations 18, blood pressure 150/75. General: This is a morbidly obese, ill-appearing elderly male. He has been vomiting in the morning and he now has an NG tube down. Head/eyes/ears/nose/throat: He has decreased hearing. He can see near objects. He does not have any white patches on his tongue. He does have an NG tube down because as mentioned above earlier this morning, he had vomiting. Lungs: Bilateral rhonchi. Cardiovascular: Heart rate is irregular. Abdomen: Protuberant and soft and nontender. Extremities: The patient's legs since he started elevating him are less erythematous and edematous. There are some eschars present on the left leg. They are dry and brown in color. Neurologic: The patient is awake. He can move his extremities. He has decreased hearing. LAB AND X-RAY STUDIES: CBC shows a white count of 11,410, hemoglobin 14, platelet count 290,000, creatinine is 0.9, GFR is greater than 60. Liver function studies are normal. Dr. Hoskins has seen the patient and he feels that vascular surgery is not necessary at this time. ASSESSMENT AND PLAN: Patient has leg cellulitis. I am encouraging him to elevate his legs as much as possible and I plan on continuing Ancef. COMORBIDITIES: Morbid obesity, elderly, gastroesophageal reflux disease, cigarette smoking, chronic leg edema. cc: MD Rudy Baires MD
[2019-03-02] MEDS: DILAUDID IV PRN (15:31)
[2019-03-02] MEDS: XYLOCAINE 5% OINT TOP PRN (17:07)
[2019-03-02] MEDS: ROBAXIN PO SCH (21:15)
[2019-03-02] MEDS: ELAVIL PO PRN (21:15)
[2019-03-03] MEDS: KEFZOL 2 GM/D5W 2 GM/50 ML IVPB IV SCH ×3 (01:24→17:41)
[2019-03-03] MEDS: DILAUDID IV PRN ×3 (07:36→23:28)
[2019-03-03] MEDS: D5 1/2 NS 1,000 ML IV SCH (07:37)
--- NOTE | 2019-03-03 08:11 | PROVIDER DOCUMENTATION ---
This chart was entered by Prabhakar Andrews Scribe, acting as scribe for Mitchel Wheeler MD. HPI-Abdominal Pain/GI Problem - General Chief Complaint: Hemorrhoids Stated Complaint: "HEMMORHOIDS GROWED UP" Time Seen by Provider: 02/23/19 14:05 Source: patient Allergies/Adverse Reactions: Patient Allergies Allergy/AdvReac Type Severity Reaction Status Date / Time No Known Allergies Allergy Verified 01/12/18 11:57 Home Medications: Home Medication List Medication Instructions Recorded Confirmed Last Taken Type Amitriptyline [Elavil] 50 mg PO QHS PRN 07/31/12 02/24/19 02/22/19 History Hydrocodone/APAP 10 mg/325 mg 1 each PO Q4HR.AWAKE 07/31/12 02/24/19 02/23/19 History [[place]-10] Omeprazole Magnesium 20 mg PO DAILY 07/31/12 02/24/19 07/31/12 08:00 History Triamterene/Hydrochlorothiazid 1 each PO DAILY 07/31/12 02/24/19 02/23/19 Hi story [Triamterene-Hctz 37.5-25 mg Cp] Buspirone HCl 10 mg PO BID 02/24/19 02/24/19 Unknown History Fluconazole 1 tab PO DAILY 02/24/19 02/24/19 Unknown History Furosemide 20 mg pe PO DAILY PRN 02/24/19 02/24/19 Unknown History Gabapentin [Neurontin] 600 mg PO TID 02/24/19 02/24/19 Unknown History Methocarbamol 750 mg PO HS 02/24/19 02/24/19 Unknown History Nystatin 1 applicatn TOP BID 02/24/19 02/24/19 Unknown History Polyethylene Glycol 3350 17 gm PO DAILY 02/24/19 02/24/19 Unknown History Potassium Chloride 1 tab PO DAILY PRN 02/24/19 02/24/19 Unknown History Tiotropium [place] [Spiriva 2 puff INHALATION DAILY 02/24/19 02/24/19 Unknown History Respimat] Triamcinolone Acetonide 1 applicatn TOP BID 02/24/19 02/24/19 Unknown History - History of Present Illness-ABD Nature of Presenting Problems: 68 yom presents to ed with cc of hemorroids x 6 months. Denies n,v,d,c,n,abd pain. Febrile on arrival of 99.8. Quality of Pain: reports: aching Severity in ED: reports: moderate Onset/Duration: reports: unsure Timing: reports: still present Associated Symptoms: reports: denies symptoms Last BM: unsure Dark Stools Present?: reports: none noticed Rectal Bleeding: reports: none Rectal Pain: reports: known hemorrhoids Emesis Description: reports: none Bruising or Bleeding Gums?: No Similar Symptoms Previously?: No Recently seen or treated by another doctor?: No Review of Systems - Adult - REVIEW OF SYSTEMS - ADULT Constitutional: reports: fever. denies: chills, fatique Eyes: reports: no symptoms reported Ears, Nose, Mouth & Throat: denies: ear pain, sinus problem, throat pain Cardiovascular: denies: irregular heart rate, syncope Respiratory: denies: cough, shortness of breath, wheezing Gastrointestinal: reports: see HPI. denies: abdominal pain, diarrhea, nausea Genitourinary: denies: flank pain, frequent UTI's, hematuria, hesitency, incontinence, urinary retention, urgency Musculoskeletal: denies: bone pain, back pain, joint pain, joint swelling Integumentary: reports: no symptoms reported Neurological: reports: no symptoms reported Psychiatric: reports: no symptoms reported Endocrine: reports: no symptoms reported Hematologic/Lymphatic: reports: no symptoms reported Allergic/Immunologic: reports: no symptoms reported All Other Systems: Reviewed and Negative Past History - Adult - PAST MEDICAL HISTORY-ADULT Review of Records: reports: Nursing Assessment Review, Medications Reviewed Major Childhood Illnesses: reports: denies history Cardiovascular: reports: denies history Respiratory: reports: denies history Gastrointestinal: reports: denies history Obstetrical/Gynecological: reports: denies history Genitourinary: reports: denies history Musculoskeletal: reports: denies history Neurological: reports: denies history Endocrine/Immune: reports: denies history Other Conditions: reports: denies history - IMMUNIZATION STATUS Childhood Immunizations: See Nurse Assessment Flu Vaccine: See Nurse Assessment - FAMILY HISTORY Family History: reviewed, not pertinent - SOCIAL HISTORY Smoking: cigarettes, less than 1 pack/day Provider spent 3-5 mins advising pt. on dangers of tobacco.: Discussed manners to quit use, and f/u contacts for add'l counseling. Substance Use: none/never Physical Exam-General - PHYSICAL EXAM-ADULT Initial Vital Signs Reviewed: Yes - CONSTITUTIONAL General Appearance: appears well, alert, mild distress - EYES Eyes: PERRL/EOMI, pink conjunctivae - NECK Neck: non-tender, full range of motion, supple, normal inspection - RESPIRATORY Respiratory: chest non-tender, lungs clear, normal breath sounds, no pleuratic chest pain, no respiratory distress, no accessory muscle use - CARDIOVASCULAR Cardiovascular: regular rate, rhythm - GASTROINTESTINAL (ABDOMEN) Abdominal Exam: soft, no organomegaly, no pulsatile mass, distended, tenderness (generalized) - GENITOURINARY Rectal Exam: hemorrhoids (small hemorrhoids. Diffuse erythemic and swollen perineal cellulitis) - MUSCULOSKELETAL Back Exam: normal inspection Extremity: inflammation (RLE), other (RLE venous stasis) - SKIN Integumentary: normal color, normal turgor, warm/dry - NEUROLOGIC Neurologic: grossly normal - PSYCHIATRIC Psych/Mental Status: normal mood/affect, normal thought content, normal thought process, oriented x 3 Progress - PLAN OF CARE/RESULTS Progress/Plan/Lab Results: Vital Signs - 8 hr 02/23/19 13:54 Temperature 99.8 F H Pulse Rate 64 Respiratory Rate 18 Blood Pressure 123/66 O2 Sat by Pulse Oximetry [address] Tamika mann at 1616 Result Diagrams: 03/02/19 03:15 03/02/19 03:15 - XRAY 1 XRAY: Bilateral XRAY Study: Abdomen Impression: Abnormal (: 1950DM Status: REG ERAcct#: [id number] Age/Sex: 68/MRoom/Bed: Loc: P.ED Ordering Physician: Mitchel Wheeler MD Family Physician: Bernarda Ochoa Reason for Procedure: colitis ___ Signed EXAM: CT ABD/PELVIS W/IV CONT ONLY HISTORY: colitis TECHNIQUE: CT abdomen and pelvis with intravenous contrast COMPARISON: 08/13/2012 FINDINGS: No pleural effusions. The gallbladder has been removed. Mild fatty infiltration of the liver. Normal spleen and pancreas. There are surgical clips in the right adrenal bed. There is a 1.5 cm left adrenal nodule. There are small renal cysts. No hydronephrosis. Prominent atherosclerosis. The entire colon is distended with fluid and air. There is a left periumbilical hernia containing small bowel loops. One of the loops entering this is not dilated where is the other adjacent loops aren't dilated. No definite wall thickening. The distal small bowel loops are not distended. No abscess. IMPRESSION: At least partial small bowel obstruction and possible incarceration within the hernia in the left lower quadrant. This report was discussed with Mitchel Wheeler in the emergency room on 02/23/2019 at 4:05 PM and was readback. This exam was performed using automated exposure control, adjustment of mA or kV according to patient size, and/or use of iterative reconstruction technique. Electronically signed by Tim Banda 02/23/2019 4:04 PM 02/23/19 1604 Interpreting Physician: Tim Banda MD Dictated Date/Time: 02/23/19 7547 cc: Mitchel Wheeler MD; Bernarda Ochoa), Discussed w/Radiology - CONSULTS/PCP/HOSPITALIST Notification #1 *Consult/PCP/Hospitalist*: Dr. Lundberg Time Discussed: 16:20 (Call Dr. Cline) #2 Consult: Dr. Cline Time Discussed: 16:24 Consult Disposition: Admit Departure - Departure Date of Disposition Decision: 02/23/19 Time of Disposition Decision: 16:06 DIAGNOSIS: Small bowel obstruction, Incarcerated hernia Cellulitis Qualifiers: Site of cellulitis: buttock Qualified Code(s): L03.317 - Cellulitis of buttock Disposition: ADMITTED INPATIENT 09 Certified Medical Emergency: Emergent Condition: Stable - Critical Care Note This patient required my direct & personal management of CC.: No Attestation - Physician/ SUSANA Attestation Patient care was provided by Advanced Practice Provider:: No The physician spent face to face time with patient:: Yes Advanced Practice Provider documentation review:: Supervising physician onsite and consulted in the evaluation and care of this patient. The physician did have a face to face encounter with the patient. This chart was documented by the indicated scribe, (Prabhakar Andrews Scribe) and accurately reflects the services I performed and decisions made by me, Mitchel Wheeler MD, as attested by the provider's signature.
[2019-03-03] MEDS: PROTONIX IV SCH (08:40)
[2019-03-03] MEDS: SODIUM CHLORIDE 0.9% INJ SCH (08:40)
[2019-03-03] MEDS: XYLOCAINE 5% OINT TOP PRN (08:40)
[2019-03-03] MEDS ORDERED: KEFZOL 2 GM/D5W 2 GM/50 ML IVPB ONE (10:04)
[2019-03-03] MEDS ORDERED: DIPRIVAN 1% ONE (10:59)
[2019-03-03] MEDS: DILAUDID ONE ×7 (12:03→21:13)
[2019-03-03] MEDS: MIRALAX PO SCH ×2 (13:24→21:15)
[2019-03-03] MEDS: METAMUCIL POWDER PACKET PO SCH ×2 (13:24→21:15)
[2019-03-03] MEDS: BUSPAR PO SCH ×2 (13:25→21:13)
[2019-03-03] MEDS: NEURONTIN PO SCH ×4 (13:25→21:14)
[2019-03-03] MEDS: DYAZIDE PO SCH (13:25)
[2019-03-03] MEDS: HYDROCORTISONE 1% CREAM TOP SCH ×2 (13:25→21:16)
[2019-03-03] MEDS: DIFLUCAN PO SCH (13:25)
[2019-03-03] MEDS: KENALOG 0.1% CREAM TOP SCH ×2 (13:25→21:11)
[2019-03-03] MEDS: MYCOSTATIN OINTMENT TOP SCH ×2 (13:26→21:11)
[2019-03-03] MEDS: NORCO-10 PO PRN ×2 (13:31→17:41)
--- NOTE | 2019-03-03 14:20 | OPERATIVE NOTE ---
PROCEDURE DATE: 03/03/2019 EXAMINATION: Esophagogastroduodenoscopy/colonoscopy. PROVIDER: Riley Thornton MD. INDICATIONS: Nausea, vomiting, dilated colon, hemorrhoids, history of tubulovillous adenoma. MEDICATIONS: General anesthesia. PROCEDURE: Prior to the procedure, a history and physical was performed and patient medication allergies were reviewed. The patient's tolerance to previous anesthesia was also reviewed. The risks and benefits of the procedure, sedation options and risks were discussed with the patient. All questions were answered. Informed consent was obtained. After reviewing the risks and the benefits, the patient was deemed in satisfactory condition to undergo the procedure. The endoscope was passed under direct visualization. Throughout the procedure, the patient's blood pressure, pulse, and oxygen saturation were monitored continuously. Endoscope was introduced in the mouth and advanced to the second part of the duodenum. The upper GI endoscopy was accomplished without difficulty. The patient tolerated the procedure well. The colonoscope was introduced through the anus and advanced to the cecum, identified by the cecum and ileocecal valve. The colonoscopy was accomplished without difficulty. The quality of the prep was poor. COMPLICATIONS: No immediate complications. ESTIMATED BLOOD LOSS: Minimal. 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 The GE junction was located at 40 cm from the incisors. Diffuse mild to moderate gastritis throughout the stomach. Random gastric biopsies were obtained to rule out H. pylori. The bulb and second portion of duodenum were normal. In the colon, there was profuse liquid and semisolid stool throughout the colon. On digital rectal exam, there was some notable non-thrombosed small external hemorrhoids. On digital rectal exam, there was some mild resistance and a question of a small segment anal stricture. No obvious anal fissures were noted. At approximately 30 cm from the anal verge, there were superficial ulcers associated with surgical anastomosis which was patent. It was difficult to assess how much narrowing there was, given the presence of stool. However, the colonoscope was traversed easily all the way to the cecum. On withdrawal, there were no obvious large lesions greater than 1 cm. Retroflexion in the rectum was notable for external hemorrhoids and no masses. RECOMMENDATIONS: The patient can resume a clear liquid diet as per surgery. Continue topical therapy for his hemorrhoids. We will follow up pathology. We will follow with you. Please call with any questions or concerns. cc: Rudy Cline MD
[2019-03-03] MEDS: ROBAXIN PO SCH (21:13)
[2019-03-04] MEDS: ELAVIL PO PRN (00:52)
[2019-03-04] MEDS: NORCO-10 PO PRN ×4 (00:53→19:48)
[2019-03-04] MEDS: KEFZOL 2 GM/D5W 2 GM/50 ML IVPB IV SCH ×3 (02:16→17:30)
[2019-03-04 02:38] LABS: URINE SOURCE CATH
[2019-03-04 02:46] LABS: BILIRUBIN URINE NEGATIVE (NEGATIVE); BLOOD URINE NEGATIVE (NEGATIVE); COLOR YELLOW; GLUCOSE URINE NEGATIVE (NEGATIVE); KETONE URINE TRACE mg/dL (NEGATIVE); LEUKOCYTES URINE NEGATIVE (NEGATIVE); NITRITE URINE NEGATIVE (NEGATIVE); PH URINE 5.5; PROTEIN URINE 30 mg/dL (NEGATIVE); SP GRAVITY URINE 1.021; TURBIDITY URINE CLEAR (CLEAR); UR EPITHELIAL CELLS <10 /HPF (<10); URINE BACTERIA NEGATIVE /HPF; URINE RBC <10 /HPF (<10); URINE WBC <10 /HPF (<10); UROBILINOGEN URINE NORMAL (NORMAL)
[2019-03-04] MEDS: DILAUDID IV PRN (05:44)
[2019-03-04] MEDS: MIRALAX PO SCH ×3 (09:07→19:49)
[2019-03-04] MEDS: DYAZIDE PO SCH (09:08)
[2019-03-04] MEDS: BUSPAR PO SCH ×2 (09:08→19:45)
[2019-03-04] MEDS: DIFLUCAN PO SCH (09:08)
[2019-03-04] MEDS: NEURONTIN PO SCH ×3 (09:08→19:45)
[2019-03-04] MEDS: SODIUM CHLORIDE 0.9% INJ SCH (09:08)
[2019-03-04] MEDS: PROTONIX IV SCH (09:08)
[2019-03-04] MEDS: METAMUCIL POWDER PACKET PO SCH (09:08)
[2019-03-04] MEDS: LOVENOX SUBQ SCH (09:08)
[2019-03-04] MEDS: HYDROCORTISONE 1% CREAM TOP SCH ×2 (09:09→19:45)
[2019-03-04] MEDS: MYCOSTATIN OINTMENT TOP SCH ×2 (11:35→19:45)
[2019-03-04] MEDS: KENALOG 0.1% CREAM TOP SCH ×2 (11:35→19:45)
--- NOTE | 2019-03-04 12:07 | INFECTIOUS DISEASE PROGRESS NO ---
DATE: 03/04/2019 PRESENT ILLNESS: Mr. Clark is being treated for bilateral lower extremity cellulitis. MEDICATIONS: Today makes 1 week of treatment with cefazolin 2 g IV every 8 hours. PHYSICAL EXAMINATION: Vital Signs: Temperature is 98.1 degrees, pulse rate 49, respiratory rate 18, blood pressure 118/67. O2 saturation is 97% on room air. General: This is a morbidly obese, chronically ill-appearing elderly gentleman sitting up in bed, currently in no acute distress. HEENT: Atraumatic, normocephalic. He is hard of hearing. Oral mucous membranes are pink and dry. Conjunctivae are pink. Neck: Supple. Trachea is midline. Cardiovascular: Heart rate is slow and irregular. Respiratory: Lung sounds are clear to auscultation bilaterally in the upper lobes and diminished in the mid and bases. Abdomen: Soft, obese and nontender. Bowel sounds are active. Integumentary: Skin is warm and dry. He has multiple ecchymotic and abrased areas to his upper and lower extremities. The cellulitis to the bilateral lower extremities has improved somewhat. There are dry, scattered abrasions on the left with bilateral purple discolorations. There is also some erythema to the posterior right calf. Edema is pitting to the bilateral lower extremities, 2 to 3+ on the right and 1 to 2+ on the left. Neurologic: He is awake, alert and oriented. Able to move around with generalized weakness noted. No tremors. LABORATORY AND X-RAY: None available today. However, urinalysis this morning shows no urine bacteria and less than 10 urine WBCs. A repeat set of blood cultures was drawn two days ago and are preliminary. Original blood cultures were negative. No imaging reports today. ASSESSMENT AND PLAN: Mr. Clark has been treated for bilateral lower extremity cellulitis using cefazolin for the last week, which we will continue at this time. I have talked to him about the importance of elevating his legs as much as possible. He states he is unable to elevate his legs due to pain from hemorrhoids. These plans have been discussed with and recommended by Dr. Newsome. COMORBIDITIES: for Mr. Clark include that he is elderly with morbid obesity, gastroesophageal reflux disease, cigarette smoking and chronic lower extremity edema. Dictated by JAIR Huertas for Rodolfo Newsome MD cc: MD Rudy Baires MD [facility]
[2019-03-04] MEDS: ROBAXIN PO SCH (19:45)
--- NOTE | 2019-03-04 21:24 | GENERAL SURGERY PROGRESS NOTE ---
DATE: 03/04/2019 SUBJECTIVE/PLAN: Mr. Clark complains of increased swelling in his legs more in the right than the left. This seems to have developed acutely. He had an abdominal CT on February 23 which did not show any obvious venous obstruction. With the acuity of his symptoms today, evaluation of his venous system might be in order. I think he has had a venous scan. I do not know the results of it. He may need to have a repeat CT venogram tomorrow to evaluate him for venous obstruction. I think his arterial supply is unchanged. cc: MD Rudy Raymond MD
--- NOTE | 2019-03-04 22:49 | PROVIDER PROGRESS NOTE ---
Progress Note SUBJECTIVE: No acute overnight events. Patient denies N/V/F, CP, SOB, abdominal pain. He has not had bowel movement since colonoscopy. He complains of RLE swelling and pain. No rectal bleeding OBJECTIVE: Last Vital Signs Temp 98.4 F 03/04/19 19:39 Pulse 59 L 03/04/19 19:39 Resp 18 03/04/19 19:39 BP 141/62 03/04/19 19:39 Pulse Ox 96 03/04/19 19:39 Height 5 ft 2 in Weight 231 lb 11.2 oz GEN: awake, alert, NAD HEENT: anicteric, MMM NECK: thick neck, no jvd CV: RRR, no mrg PULM: CTAB, no wheezing ABD: mildline exlap scar, left lower abdominal wall ventral hernia that is nontender, abdomen mildly distended and tympanic, BS present, NT, no ascites EXT: b/l LEs cool to touch, L>R with left purplish discoloration with large ulceration that well-demarcated on the inner leg NEURO: nonfocal EGD/Colonoscopy 03/03 FINDINGS: From the mid to distal esophagus, there was esophagitis dissecans. The GE junction was located at 40 cm from the incisors. Diffuse mild to moderate gastritis throughout the stomach. Random gastric biopsies were obtained to rule out H. pylori. The bulb and second portion of duodenum were normal. In the colon, there was profuse liquid and semisolid stool throughout the colon. On digital rectal exam, there was some notable non-thrombosed small external hemorrhoids. On digital rectal exam, there was some mild resistance and a question of a small segment anal stricture. No obvious anal fissures were noted. At approximately 30 cm from the anal verge, there were superficial ulcers associated with surgical anastomosis which was patent. It was difficult to assess how much narrowing there was, given the presence of stool. However, the colonoscope was traversed easily all the way to the cecum. On withdrawal, there were no obvious large lesions greater than 1 cm. Retroflexion in the rectum was notable for external hemorrhoids and no masses. A/P: Mr. 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 CTAP shows diffuse dilated colon concerning for distal obstruction. EGD showed esophagitis dissecans and gastritis (biopsied). Colonoscopy showed anastomotic ulceration in left colon without obvious large masses or obstruction. BERTHA was notable for external hemorrhoids and ?non-obstructive anal stricture. ID following for LLE infection. Patient has distal flow in LLE seen on DAYAN. #Esophagitis dissecans: recommend PPI BID for 8-12 weeks #Gastritis: PPI as above; avoid NSAIDs; pathology pending #Dilated colon: concerning for colo-colonic pseudo-obstruction - continue miralax BID -cont GI soft diet #Symptomatic hemorrhoids - continue topical therapy - bowel regimen as above, avoid constipation, discourage prolonged toileting, straining - surgery following #History of TVA: previously resected - patient will repeat colonoscopy as outpatient when acute issues resolve given poor preparation - no evidence of anemia #LLE cellulitis: improving - defer mgmt to surgery - ID following #RLE: agree with lower extremity venous doppler Will sign off. Please call with questions
[2019-03-05] MEDS: METAMUCIL POWDER PACKET PO SCH ×3 (01:29→21:46)
[2019-03-05] MEDS: NORCO-10 PO PRN ×3 (02:05→21:45)
[2019-03-05] MEDS: KEFZOL 2 GM/D5W 2 GM/50 ML IVPB IV SCH ×3 (02:05→17:17)
[2019-03-05] MEDS: DILAUDID IV PRN (06:05)
[2019-03-05 07:18] LABS: MPV 11.4 FL (7.4-10.4); RDW 14.1 % (11.5-14.5)
[2019-03-05 07:19] LABS: BASO# 0.01 X1000 (0.0-0.2); BASO% 0.1 % (0.0-0.8)
[2019-03-05 07:35] LABS: ESTIMATED GFR > 60
[2019-03-05 07:37] LABS: AGAP 12; BUN 12 mg/dL (8-22); CALCIUM 9.1 mg/dL (8.8-10.2); CHLORIDE 87 mmol/L (98-107); COSMO 265; CREATININE 0.6 mg/dL (0.7-1.2); GLUCOSE 112 mg/dL (70-104); POTASSIUM 2.8 mmol/L (3.5-5.1); SODIUM 132 mmol/L (136-145); TCO2 33 mmol/L (25-35)
[2019-03-05 08:21] LABS: EOS# 0.09 X1000 (0.0-0.7); HEMATOCRIT 40.1 % (42.0-52.0); HEMOGLOBIN 13.3 g/dL (14.0-18.0); LYMPH# 0.88 X1000 (1.2-3.4); LYMPH% 9.4 % (20.5-51.1); MCH 28.7 PG (27-31); MCHC 33.2 g/dL (33-37); MCV 86.6 FL (81-99); MONO% 8.5 % (1.7-9.3); NEUT# 7.58 X1000 (1.4-6.5); PLT 262 X1000 (130-400); RBC 4.63 XMIL (4.7-6.1); WBC 9.36 X1000 (4.8-10.8)
[2019-03-05] MEDS: NEURONTIN PO SCH ×3 (10:23→21:45)
[2019-03-05] MEDS: DIFLUCAN PO SCH (10:23)
[2019-03-05] MEDS: BUSPAR PO SCH ×2 (10:23→21:44)
[2019-03-05] MEDS: DYAZIDE PO SCH (10:23)
[2019-03-05] MEDS: PROTONIX PO SCH ×2 (10:24→21:45)
[2019-03-05] MEDS: POTASSIUM CHLORIDE 10% LIQUID PO SCH ×3 (10:27→17:18)
[2019-03-05] MEDS: D5 1/2 NS + KCL 20 MEQ 1,000 ML IV SCH (10:28)
--- NOTE | 2019-03-05 10:29 | Diag Imaging Result Doc PS360 ---
EXAM: CT ANGIOGRAM AORTA W/RUNOFF HISTORY: LOWER EXT PAIN TECHNIQUE: CT angiogram lower extremity runoff. Arteriogram protocol with MIP images. COMPARISON: CT abdomen and pelvis from 02/23/2019 FINDINGS: Mild fatty infiltration of the liver. The gallbladder has been removed. Normal spleen, pancreas, adrenal glands, and kidneys. Air-fluid distended multiple small bowel loops and the colon. No definite change in the left lower abdominal hernias containing bowel loops. No wall thickening or obstruction at this point identified. There is a Johnson catheter within the urinary bladder. No abdominal aortic aneurysm. Normal takeoff of the celiac and superior mesenteric arteries. No significant stenosis. Minimal narrowing at the takeoff of each renal artery. No significant stenosis. Tiny inferior mesenteric artery. Mild atherosclerosis of the distal aorta. Left: Normal proximal and mid common iliac artery. Tight stenosis at the junction of the internal and external iliac arteries. Stenosis proximally in the external iliac artery of over 70%. Additional stenoses in the mid external iliac artery and distally approximately 70%. There is complete occlusion in the proximal superficial femoral artery. There is contrast distally in the abductor canal via muscular collaterals. Stenosis in the mid popliteal artery of 70%. There is a three vessel trifurcation. Contrast is pleasant and small anterior and posterior tibial arteries. Right: Normal flow in the common iliac artery. Stenosis in the proximal external iliac artery of over 70%. Additional stenoses distally of under 70%. No significant stenosis in the common femoral artery. Severe stenosis in the proximal superficial femoral artery of over 90%. Multiple stenoses throughout the mid and distal superficial femoral artery approaching 90%. No complete occlusion. Stenosis in the distal popliteal artery approaching 90%. No flow in the posterior tibial artery. There is flow in a small anterior tibial artery. IMPRESSION: Multiple stenoses and occlusions as described above. The left superficial femoral artery is occluded with reconstitution distally. Multiple severe stenoses in the right superficial femoral and popliteal arteries. This exam was performed using automated exposure control, adjustment of mA or kV according to patient size, and/or use of iterative reconstruction technique. Electronically signed by Tim Banda 03/05/2019 10:27 AM
[2019-03-05] MEDS: KENALOG 0.1% CREAM TOP SCH ×2 (10:32→21:46)
[2019-03-05] MEDS: MYCOSTATIN OINTMENT TOP SCH ×2 (10:32→21:46)
[2019-03-05] MEDS: LOVENOX SUBQ SCH (10:33)
[2019-03-05] MEDS: MIRALAX PO SCH ×2 (10:33→21:44)
[2019-03-05] MEDS: HYDROCORTISONE 1% CREAM TOP SCH ×2 (10:33→21:46)
[2019-03-05] MEDS: ELAVIL PO PRN (21:44)
[2019-03-05] MEDS: ROBAXIN PO SCH (21:46)
[2019-03-06] MEDS: DILAUDID IV PRN (00:45)
[2019-03-06] MEDS: KEFZOL 2 GM/D5W 2 GM/50 ML IVPB IV SCH (02:10)
[2019-03-06 07:34] VITALS: BP 150/75
[2019-03-06] MEDS: NORCO-10 PO PRN (07:44)
[2019-03-06] MEDS: MIRALAX PO SCH (08:20)
[2019-03-06] MEDS: POTASSIUM CHLORIDE 10% LIQUID PO SCH (08:20)
[2019-03-06] MEDS: LOVENOX SUBQ SCH (08:24)
[2019-03-06] MEDS: DYAZIDE PO SCH (08:24)
[2019-03-06] MEDS: PROTONIX PO SCH (08:24)
[2019-03-06] MEDS: BUSPAR PO SCH (08:24)
[2019-03-06] MEDS: METAMUCIL POWDER PACKET PO SCH (08:24)
[2019-03-06] MEDS: DIFLUCAN PO SCH (08:24)
[2019-03-06] MEDS: NEURONTIN PO SCH (08:24)
[2019-03-06] MEDS: D5 1/2 NS + KCL 20 MEQ 1,000 ML IV SCH (08:28)
--- NOTE | 2019-03-09 11:34 | Extremity Venous Study ---
PROCEDURE NAME: Venous U/S Bilateral Legs - 03/04/2019 INDICATIONS: The patient has edema in the legs. The study is difficult due to the patient's size and discomfort. RESULTS: Bilateral lower extremity venous images accomplished. The common femoral, superficial femoral, deep femoral, popliteal, posterior tibial, and peroneal veins are identified. Doppler was used to evaluate the veins for spontaneity, phasicity, respiratory excursion, distal augmentation. All veins are compressible and no intraluminal clot is seen. INTERPRETATION: No evidence of deep or superficial venous thrombosis in either lower extremity identified. The study was difficult due to the patient's discomfort. cc: MD Rudy Raymond MD
--- NOTE | 2019-03-11 06:47 | DISCHARGE SUMMARY ---
ADMISSION DATE: 02/23/2019 DISCHARGE DATE: 03/06/2019 DIAGNOSES: 1. Partial small-bowel obstruction with incisional hernia. 2. Prolapsing hemorrhoids vascular compromise both lower extremities. CONSULTATIONS: 1. Dr. Thornton. 2. Dr. Sevilla. 3. Dr. Aadir Hoskins. HISTORY: The patient is a 68-year-old white male known to me for the last 20 years. In 1999, he had a large pheochromocytoma of the right adrenal requiring resection. The tumor was dumbbell behind the vena cava, but it was removed in its entirety, and as I said no recurrence since that time. 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 He subsequently had a stenosis of the anastomosis requiring reexploration and revision of the anastomosis. He had not been seen since that time. He presented to the emergency room at [place] with partial bowel obstruction and ischemic changes in his left leg with nausea, abdominal pain and complaints of he bleeding hemorrhoids. He was transferred to [facility]. The left leg itself reveals significant mottling and some ulceration on the medial calf. Dr. Rodolfo Newsome was consulted for evaluation of this, and placed the patient on broad-spectrum antibiotics. Dr. Hoskins was consulted for evaluation of the vascular situation in his left leg. The non invasive studies revealed an occluded superficial femoral artery but distal recanalization with some pulsatile flow of the foot. The hemorrhoids were bothersome. Dr. Thornton and Dr. Sevilla were consulted. Dr. Thornton performed a colonoscopy revealing a widely patent anastomosis with the prolapsing hemorrhoids and some anal stenosis. Otherwise, with no recurrence of the villous adenoma. Initial plan once the vascular situation was cleared was to perform exploratory laparotomy, and repair the incisional hernia and perform adhesiolysis with a partial small bowel obstruction. The patient refused this procedure. CT scan with vascular runoffs revealed the extensive nature of the disease in his aorto iliac area and the thigh. However, they did have satisfactory recannulization and Dr. Hoskins felt that no revision was indicated at this time. The patient was subsequently allowed home on 03/06. He will be seen in the office in a week or 2, and will consider plans for a hemorrhoidectomy at that time. cc: Rudy Cline MD
== END 2019-03-06 11:35 | disposition home health service (06) | DRG 394 ==
LOC: P.ED 13:49 → 4N 17:34
PROVIDERS: ADMIT Surgery; ATTEND Surgery
CPT/HCPCS: 71010; 71045; 74000; 74018; 74177; 75635; 80048; 80053; 81001; 82550; 83605; 84134; 84484; 85025; 85610; 85730; 86850; 86900; 86901; 87040; 87088; 88305; 88312; 93005; 93010; 93880; 93923; 93970; 94761; 99285; A9270; C9113; J0690; J1170; J1650; J2405; J3480; Q9967; S0164

== ENCOUNTER 2019-03-24 12:42 | Inpatient (IN) ==
--- NOTE | 2019-03-24 13:19 | Diag Imaging Result Doc PS360 ---
EXAM: CT HEAD W/O CONTRAST HISTORY: STROKE ALERT TECHNIQUE: CT head without contrast COMPARISON: 08/13/2012 FINDINGS: No parenchymal hemorrhage. No epidural or subdural hematoma. No subarachnoid hemorrhage. There is mild atrophy. No mass identified on this noncontrasted exam. No hydrocephalus. No sinus opacification. IMPRESSION: 1.No hemorrhage 2.Mild atrophy This exam was performed using automated exposure control, adjustment of mA or kV according to patient size, and/or use of iterative reconstruction technique. Electronically signed by Tim Banda 03/24/2019 1:17 PM
--- NOTE | 2019-03-24 13:42 | Diag Imaging Result Doc PS360 ---
EXAM: CHEST-1 VIEW HISTORY: SOB TECHNIQUE: Chest single view COMPARISON: 03/02/2019 FINDINGS: Poor inspiratory effort. The heart is not enlarged. The vessels are not distended. There are no infiltrates. Questionable small left pleural effusion. IMPRESSION: Questionable small left effusion, otherwise negative exam. Electronically signed by Tim Banda 03/24/2019 1:40 PM
[2019-03-24 14:00] LABS: BASO# 0.02 X1000 (0.0-0.2); BASO% 0.3 % (0.0-0.8); EOS# 0.17 X1000 (0.0-0.7); EOS% 2.2 % (0.0-10.0); HEMATOCRIT 41.2 % (42.0-52.0); HEMOGLOBIN 13.6 g/dL (14.0-18.0); LYMPH# 0.97 X1000 (1.2-3.4); LYMPH% 12.4 % (20.5-51.1); MCH 28.4 PG (27-31); MONO# 0.56 X1000 (0.11-0.59); MONO% 7.2 % (1.7-9.3); MPV 10.9 FL (7.4-10.4); NEUT# 6.09 X1000 (1.4-6.5); NEUT% 77.9 % (42.2-75.2); PLT 337 X1000 (130-400); RBC 4.79 XMIL (4.7-6.1); RDW 14.6 % (11.5-14.5); WBC 7.81 X1000 (4.8-10.8)
[2019-03-24 14:20] LABS: AGAP 14; BUN 12 mg/dL (8-22); CALCIUM 8.6 mg/dL (8.8-10.2); CHLORIDE 92 mmol/L (98-107); COSMO 271; CREATININE 0.6 mg/dL (0.7-1.2); ESTIMATED GFR > 60; GLUCOSE 94 mg/dL (70-104); POTASSIUM 3.1 mmol/L (3.5-5.1); SODIUM 136 mmol/L (136-145); TCO2 30 mmol/L (25-35); TOTAL BILIRUBIN 0.23 mg/dL (0.20-1.00); TOTAL PROTEIN 6.7 g/dL (6.3-8.3)
[2019-03-24 14:21] LABS: ALB/GLOB RATIO 0.8; ALKALINE PHOSPHATASE 112 U/L (32-122); GOT 27 U/L (10-34); GPT 9 U/L (10-44)
[2019-03-24] MEDS ORDERED: MAGNESIUM SULFATE 2 GM/S.W.I. 2 GM/50 ML IVPB IV ONE (14:47)
[2019-03-24] MEDS ORDERED: ROCEPHIN 1 GM in NS 50 ML IV ONE (14:47)
--- NOTE | 2019-03-24 15:15 | PROVIDER DOCUMENTATION ---
This chart was entered by Aliya Fisher Scribe, acting as scribe for Sylvain Good MD. HPI-General Adult - General Chief Complaint: Generalized Pain Stated Complaint: WEAKNESS Time Seen by Provider: 03/24/19 13:07 Source: patient Allergies/Adverse Reactions: Patient Allergies Allergy/AdvReac Type Severity Reaction Status Date / Time No Known Allergies Allergy Verified 01/12/18 11:57 Home Medications: Home Medication List Medication Instructions Recorded Confirmed Last Taken Type Amitriptyline [Elavil] 50 mg PO QHS PRN 07/31/12 03/24/19 02/22/19 History Hydrocodone/APAP 10 mg/325 mg 1 each PO Q4HR.AWAKE 07/31/12 02/24/19 02/23/19 History [[place]-10] Omeprazole Magnesium 20 mg PO DAILY 07/31/12 03/24/19 07/31/12 08:00 History Triamterene/Hydrochlorothiazid 1 each PO DAILY 07/31/12 03/24/19 02/23/19 History [Triamterene-Hctz 37.5-25 mg Cp] Buspirone HCl 10 mg PO BID 02/24/19 03/24/19 Unknown History Fluconazole 1 tab PO DAILY 02/24/19 03/24/19 Unknown History Furosemide 20 mg pe PO DAILY PRN 02/24/19 03/24/19 Unknown History Gabapentin [Neurontin] 600 mg PO TID 02/24/19 03/24/19 Unknown History Methocarbamol 750 mg PO HS 02/24/19 03/24/19 Unknown History Nystatin 1 applicatn TOP BID 02/24/19 03/24/19 Unknown History Polyethylene Glycol 3350 17 gm PO DAILY 02/24/19 03/24/19 Unknown History Potassium Chloride 1 tab PO DAILY PRN 02/24/19 03/24/19 Unknown History Tiotropium [place] [Spiriva 2 puff INHALATION DAILY 02/24/19 03/24/19 Unknown History Respimat] Triamcinolone Acetonide 1 applicatn TOP BID 02/24/19 03/24/19 Unknown History Docusate Sodium [Colace] 100 mg PO BID #40 cap 03/06/19 03/24/19 Unknown Rx Hydrocodone/Acetaminophen [[place] 1 ea PO Q6-8H PRN PRN #30 tab 03/06/19 03/24/19 Unknown Rx 10-325 Tablet] Tamsulosin [Flomax] 0.4 mg PO DAILY #20 cap 03/06/19 03/24/19 Unknown Rx Amoxicillin/Pot Clavulanate 875 mg PO Q12HR 7 Days #14 tab 03/24/19 Unknown Rx [Augmentin] Naproxen Sodium [Anaprox Ds] 550 mg PO BID #20 tab 03/24/19 Unknown Rx - History of Present Illness -Gen Adult Nature of Presenting Problems: Patient is a 68 year old male who presents to the ED via EMS with bilateral lower leg pain. Patient states pain has been present for 2 months but getting worse. Patient states he is scheduled to see Dr. Cline today at 1400 for skin wounds on bilateral lower legs. Denies fever. Location of Pain/Injury: reports: lower extremity (bilateral lower legs) Pain Radiation: reports: no radiation Quality of Pain: reports: aching Severity: reports: mild Onset/Duration: reports: other (2 months) Timing: reports: still present Context/Activities at Onset: reports: light activity Associated Symptoms: reports: other (skin wounds to bilateral lower legs) Similar Symptoms Previously?: Yes Recently seen or treated by another doctor?: Yes Review of Systems - Adult - REVIEW OF SYSTEMS - ADULT Constitutional: reports: no symptoms reported. denies: chills, fever, fatique Eyes: reports: no symptoms reported Ears, Nose, Mouth & Throat: reports: no symptoms reported Cardiovascular: reports: no symptoms reported Respiratory: reports: no symptoms reported Gastrointestinal: reports: no symptoms reported Genitourinary: reports: no symptoms reported Musculoskeletal: reports: see HPI, other (pain to bilateral lower legs). denies: back pain, neck pain Integumentary: reports: see HPI, skin sores/ulcer (bilateral lower legs). denies: hives, itching, rash Neurological: reports: no symptoms reported Psychiatric: reports: no symptoms reported Endocrine: reports: no symptoms reported Hematologic/Lymphatic: reports: no symptoms reported Allergic/Immunologic: reports: no symptoms reported All Other Systems: Reviewed and Negative Past History - Adult - PAST MEDICAL HISTORY-ADULT Review of Records: reports: Old Records Reviewed, Nursing Assessment Review, Medications Reviewed, Social history reviewed & non-contributory. Major Childhood Illnesses: reports: denies history Cardiovascular: reports: HTN Respiratory: reports: denies history Gastrointestinal: reports: GERD Obstetrical/Gynecological: reports: denies history Genitourinary: reports: kidney disease Musculoskeletal: reports: denies history Neurological: reports: denies history Endocrine/Immune: reports: denies history Other Conditions: reports: denies history - PRIOR SURGERIES/PROCEDURES Surgical/Procedure History: reports: reviewed, not pertinent, cholecystectomy - IMMUNIZATION STATUS Childhood Immunizations: See Nurse Assessment Flu Vaccine: See Nurse Assessment - FAMILY HISTORY Family History: reviewed, not pertinent - SOCIAL HISTORY Smoking: cigarettes, less than 1 pack/day Provider spent 3-5 mins advising pt. on dangers of tobacco.: Discussed manners to quit use, and f/u contacts for add'l counseling. Substance Use: denies Living Situation: alone Physical Exam-General - PHYSICAL EXAM-ADULT Initial Vital Signs Reviewed: Yes - CONSTITUTIONAL General Appearance: alert, no apparent distress, obese. negative: lethargic, slow to respond - EYES Eyes: PERRL/EOMI, pink conjunctivae. negative: scleral icterus, sunken eyes - HEAD, EARS, NOSE, MOUTH & THROAT HENMT: normocephalic/atraumatic, moist mucous membranes. negative: angioedema - RESPIRATORY Respiratory: chest non-tender, lungs clear, normal breath sounds. negative: crackles, stridor, wheezing - CARDIOVASCULAR Cardiovascular: normal peripheral pulses, regular rate, rhythm. negative: tachycardia, systolic murmur - GASTROINTESTINAL (ABDOMEN) Abdominal Exam: normal bowel sounds, non tender, soft. negative: guarding, rebound - MUSCULOSKELETAL Extremity: tenderness (right lower leg), other (skin ulcers to right lower leg with surrounding erythema and mild drainage). negative: deformity - SKIN Integumentary: normal color, normal turgor, warm/dry, other (skin ulcers to right lower leg with surrounding erythema and mild drainage.). negative: cyanosis, ecchymosis, jaundice, pallor, rash - NEUROLOGIC Neurologic: grossly normal, no motor/sensory deficits. negative: aphasia, facial droop, motor weakness, sensory deficit - PSYCHIATRIC Psych/Mental Status: normal mood/affect, oriented x 3. negative: anxious, paranoid Progress - PLAN OF CARE/RESULTS Progress/Plan/Lab Results: Vital Signs - 8 hr 03/24/19 12:50 Temperature 98.7 F Pulse Rate 105 H Respiratory Rate 16 Blood Pressure 141/82 O2 Sat by Pulse Oximetry 95 Orders Category Date Time Status Saline Loc NOW Care 03/24/19 13:26 Active CHEST-1 VIEW [RAD] Stat Exams 03/24/19 13:[address] HEAD W/O CONTRAST [CT] Stat Exams 03/24/19 12:43 Completed BLOOD CULTURE [BLDCUL] Stat Lab 03/24/19 13:34 Ordered CBC WITH ELECTRONIC DIFF [HEME] Stat Lab 03/24/19 13:34 Ordered COMPREHENSIVE METABOLIC PANEL [CHEM] Stat Lab 03/24/19 13:34 Ordered MAGNESIUM [CHEM] Stat Lab 03/24/19 13:27 Ordered UA NIMS W/REFLEX CULT [URINALYSIS] Stat Lab 03/24/19 13:27 Uncollected URINE DRUG SCREEN Stat Lab 03/24/19 13:27 Uncollected Result Diagrams: 03/24/19 13:30 03/24/19 13:30 - REASSESSMENT Reassessment #1 Time Reassessed: 15:15 Status: other (REMAINS STABLE IN ER. NO DISTRESS. NO CHEST PAIN OR SOB. NO FOCAL NEURO DEFICITS) - XRAY 1 XRAY Study: Chest Impression: See EMR Report (Signed EXAM: CHEST-1 VIEW HISTORY: SOB TECHNIQUE: Chest single view COMPARISON: 03/02/2019 FINDINGS: Poor inspiratory effort. The heart is not enlarged. The vessels are not distended. There are no infiltrates. Questionable small left pleural effusion. IMPRESSION: Questionable small left effusion, otherwise negative exam. Electronically signed by Tim Banda 03/24/2019 1:40 PM 03/24/19 1340 Interpreting Physician: Tim Banda MD Dictated Date/Time: 03/24/19 1339 cc: Sylvain Good MD; Rudy Cline MD) - CT/MRI 1 CT Study: Head Impression: See EMR Report ( EXAM: CT HEAD W/O CONTRAST HISTORY: STROKE ALERT TECHNIQUE: CT head without contrast COMPARISON: 08/13/2012 FINDINGS: No parenchymal hemorrhage. No epidural or subdural hematoma. No subarachnoid hemo rrhage. There is mild atrophy. No mass identified on this noncontrasted exam. No hydrocephalus. No sinus opacification. IMPRESSION: 1.No hemorrhage 2.Mild atrophy This exam was performed using automated exposure control, adjustment of mA or kV according to patient size, and/or use of iterative reconstruction technique. Electronically signed by Tim Banda 03/24/2019 1:17 PM 03/24/19 1317 Interpreting Physician: Tim Banda MD Dictated Date/Time: 03/24/19 1316 cc: Sylvain Good MD; Rudy Cline MD) Departure - Departure Date of Disposition Decision: 03/24/19 Time of Disposition Decision: 15:14 DIAGNOSIS: Cellulitis Disposition: HOME 01 Certified Medical Emergency: Emergent Condition: Stable Additional Freetext Instructions: CONTINUE WOUND CARE / DRESSINGS. RETURN TO ER IF WORSE REDNESS, SWELLING, FEVER, PUS DRAINAGE, WEAK, LETHARGIC. FOLLOW UP WITH PMD / WOUND CLINIC 1-2 DAYS ED Follow Up Instructions: You have been treated by a care provider in the Emergency Department. These instructions are being provided to you so you can have an understanding of how to care for yourself upon discharge. Upon discharge from the Emergency Department, you are responsible for making arrangements for follow-up care by a physician of your choice. Take all prescribed medications as directed. Return to the Emergency Department immediately for any new or worsening symptoms. You may call the Physician Referral phone number at [phone] to obtain a list of Physicians who are taking new patients. Prescriptions: Naproxen Sodium [Anaprox Ds] 550 mg PO BID #20 tab Amoxicillin/Pot Clavulanate [Augmentin] 875 mg PO Q12HR 7 Days #14 tab Referrals and Follow-Ups: Rudy Cline MD [Primary Care Provider] - Discharge Education: Cellulitis, Adult, Hypomagnesemia - Critical Care Note This patient required my direct & personal management of CC.: No Attestation - Physician/ SUSANA Attestation Patient care was provided by Advanced Practice Provider:: No The physician spent face to face time with patient:: Yes Advanced Practice Provider documentation review:: Supervising physician onsite and consulted in the evaluation and care of this patient. The physician did have a face to face encounter with the patient. This chart was documented by the indicated scribe, (Aliya Fisher Scribe) and accurately reflects the services I performed and decisions made by me, Joshua Good MD, as attested by the provider's signature.
[2019-03-24 16:34] LABS: URINE SOURCE CLEAN CATCH
[2019-03-24 16:38] LABS: BILIRUBIN URINE NEGATIVE (NEGATIVE); BLOOD URINE NEGATIVE (NEGATIVE); COLOR YELLOW; GLUCOSE URINE NEGATIVE (NEGATIVE); KETONE URINE NEGATIVE (NEGATIVE); LEUKOCYTES URINE NEGATIVE (NEGATIVE); NITRITE URINE NEGATIVE (NEGATIVE); PH URINE 7.5; PROTEIN URINE NEGATIVE (NEGATIVE); SP GRAVITY URINE 1.012; TURBIDITY URINE CLEAR (CLEAR); UROBILINOGEN URINE NORMAL (NORMAL)
[2019-03-24 16:40] LABS: UR EPITHELIAL CELLS <10 /HPF (<10); URINE BACTERIA NEGATIVE /HPF; URINE RBC <10 /HPF (<10); URINE WBC <10 /HPF (<10)
[2019-03-24 16:50] LABS: UR AMPHETAMINES QUAL NONE DETECTED (NONE DETECT); UR BARBITUATES QUAL NONE DETECTED (NONE DETECT); UR BENZODIAZEPIN QUAL NONE DETECTED (NONE DETECT); UR CANNABINOIDS QUAL NONE DETECTED (NONE DETECT); UR COCAINE QUAL NONE DETECTED (NONE DETECT); UR METHADONE QUAL NONE DETECTED (NONE DETECT); UR OPIATES QUAL PRESUMPTIVE POSITIVE (NONE DETECT); UR OXYCODONE QUAL NONE DETECTED (NONE DETECT); UR PCP QUAL NONE DETECTED (NONE DETECT)
[2019-03-24] MEDS ORDERED: NORCO-10 PO PRN (17:08)
[2019-03-24] MEDS ORDERED: MORPHINE IV PRN (17:08)
[2019-03-24] MEDS ORDERED: ZOFRAN PO PRN (17:09)
[2019-03-24] MEDS ORDERED: ZOFRAN IV PRN (17:09)
[2019-03-24] MEDS ORDERED: VANCOMYCIN IV PER PHARMACY MISC SCH (17:15)
[2019-03-24 17:56] LABS: BASO# 0.05 X1000 (0.0-0.2); BASO% 0.6 % (0.0-0.8); EOS# 0.16 X1000 (0.0-0.7); EOS% 1.9 % (0.0-10.0); HEMATOCRIT 39.1 % (42.0-52.0); HEMOGLOBIN 13.2 g/dL (14.0-18.0); IMM GRAN# 0.06 X1000 (0.0-0.04); IMM GRAN% 0.7 % (0.0-0.5); LYMPH# 1.24 X1000 (1.2-3.4); LYMPH% 14.9 % (20.5-51.1); MCH 28.3 PG (27-31); MCHC 33.8 g/dL (33-37); MCV 83.7 FL (81-99); MONO# 0.61 X1000 (0.11-0.59); MONO% 7.3 % (1.7-9.3); MPV 10.7 FL (7.4-10.4); NEUT% 74.6 % (42.2-75.2); PLT 362 X1000 (130-400); RBC 4.67 XMIL (4.7-6.1); RDW 14.4 % (11.5-14.5); WBC 8.32 X1000 (4.8-10.8)
[2019-03-24] MEDS ORDERED: D5 1/2 NS + KCL 20 MEQ 1,000 ML IV SCH (18:00)
[2019-03-24] MEDS ORDERED: VANCOMYCIN 2,200 MG in NS 500 ML IV ONE (18:00)
[2019-03-24 18:21] LABS: AGAP 19; BUN 11 mg/dL (8-22); CALCIUM 8.4 mg/dL (8.8-10.2); CHLORIDE 90 mmol/L (98-107); COSMO 273; CREATININE 0.6 mg/dL (0.7-1.2); ESTIMATED GFR > 60; GLUCOSE 102 mg/dL (70-104); SODIUM 137 mmol/L (136-145); TCO2 28 mmol/L (25-35)
[2019-03-24] MEDS: ZOSYN 3.375 GM in NS 50 ML IV SCH (23:00)
[2019-03-25] MEDS: ZOSYN 3.375 GM in NS 50 ML IV SCH (04:51)
[2019-03-25] MEDS ORDERED: VANCOMYCIN 1,500 MG in NS 250 ML IV SCH (06:00)
[2019-03-25 06:59] LABS: BASO# 0.03 X1000 (0.0-0.2); BASO% 0.4 % (0.0-0.8); EOS# 0.24 X1000 (0.0-0.7); EOS% 3.1 % (0.0-10.0); HEMATOCRIT 40.3 % (42.0-52.0); HEMOGLOBIN 13.5 g/dL (14.0-18.0); IMM GRAN# 0.05 X1000 (0.0-0.04); IMM GRAN% 0.6 % (0.0-0.5); LYMPH# 1.05 X1000 (1.2-3.4); LYMPH% 13.5 % (20.5-51.1); MCH 28.1 PG (27-31); MCHC 33.5 g/dL (33-37); MONO# 0.57 X1000 (0.11-0.59); MONO% 7.3 % (1.7-9.3); MPV 10.7 FL (7.4-10.4); NEUT# 5.85 X1000 (1.4-6.5); NEUT% 75.1 % (42.2-75.2); PLT 356 X1000 (130-400); RDW 14.5 % (11.5-14.5); WBC 7.79 X1000 (4.8-10.8)
[2019-03-25] MEDS ORDERED: DIPRIVAN 1% ONE (07:15)
[2019-03-25] MEDS ORDERED: XYLOCAINE-MPF 2% ONE (07:15)
[2019-03-25 07:41] LABS: AGAP 13; BUN 12 mg/dL (8-22); CALCIUM 8.6 mg/dL (8.8-10.2); CHLORIDE 96 mmol/L (98-107); COSMO 276; CREATININE 0.6 mg/dL (0.7-1.2); ESTIMATED GFR > 60; GLUCOSE 117 mg/dL (70-104); SODIUM 138 mmol/L (136-145); TCO2 29 mmol/L (25-35)
[2019-03-25] MEDS ORDERED: MAXIPIME 2 GM in NS 100 ML IV SCH (07:45)
[2019-03-25] MEDS ORDERED: HYDROGEN PEROXIDE SOLUTION ONE (07:50)
[2019-03-25] MEDS ORDERED: FENTANYL ONE (07:57)
[2019-03-25 08:08] LABS: POTASSIUM 2.4 mmol/L (3.5-5.1)
[2019-03-25] MEDS: DILAUDID ONE ×6 (08:49→09:19)
[2019-03-25] MEDS ORDERED: NORCO-10 ONE (08:58)
--- NOTE | 2019-03-25 10:25 | OPERATIVE NOTE ---
PROCEDURE DATE: 03/25/2019 PREOPERATIVE DIAGNOSIS: Ischemic ulcers right and left calves. POSTOPERATIVE DIAGNOSIS: Ischemic ulcers right and left calves. PROCEDURE.: Debridement. DESCRIPTION OF PROCEDURE: The patient was brought to the operating room. After satisfactory induction of IV and LMA anesthesia, both lower extremities from the knee down were prepped and draped in the appropriate manner. The largest ischemic ulcer was on the medial malleolus area and sharply debrided. Anaerobic and aerobic cultures were obtained. There was only minimal bleeding. There was a linear focus of the ulcerations in the medial calf on the right and the left side. These were all sharply debrided with Betadine and covered with Betadine-soaked Kerlix. Sterile dressings were applied over these. The patient was subsequently awakened and extubated in the operating room and transferred to recovery. ESTIMATED BLOOD LOSS: Was around 5-10 mL. cc: Rudy Cline MD
[2019-03-25] MEDS: D5 1/2 NS + KCL 30 MEQ 1,000 ML IV SCH (11:01)
[2019-03-25] MEDS: TEFLARO 600 MG in NS 250 ML IV SCH ×2 (11:02→21:25)
[2019-03-25] MEDS: MORPHINE IV PRN ×5 (11:02→20:43)
[2019-03-25] MEDS: NORCO-10 PO PRN ×2 (15:09→21:24)
[2019-03-25] MEDS: ATIVAN PO PRN (20:44)
[2019-03-25] MEDS: PERIDEX MT SCH (21:25)
[2019-03-26] MEDS: MORPHINE IV PRN ×5 (01:23→20:40)
[2019-03-26] MEDS: NORCO-10 PO PRN ×2 (04:04→16:39)
[2019-03-26] MEDS: D5 1/2 NS + KCL 30 MEQ 1,000 ML IV SCH ×3 (05:38→17:13)
[2019-03-26 07:07] LABS: BASO# 0.02 X1000 (0.0-0.2); BASO% 0.2 % (0.0-0.8); EOS% 2.3 % (0.0-10.0); HEMATOCRIT 39.6 % (42.0-52.0); IMM GRAN# 0.07 X1000 (0.0-0.04); IMM GRAN% 0.8 % (0.0-0.5); LYMPH# 0.67 X1000 (1.2-3.4); LYMPH% 7.5 % (20.5-51.1); MCH 27.8 PG (27-31); MCHC 32.8 g/dL (33-37); MCV 84.8 FL (81-99); MONO# 0.47 X1000 (0.11-0.59); MONO% 5.3 % (1.7-9.3); MPV 10.9 FL (7.4-10.4); NEUT# 7.45 X1000 (1.4-6.5); NEUT% 83.9 % (42.2-75.2); PLT 336 X1000 (130-400); RBC 4.67 XMIL (4.7-6.1); RDW 14.6 % (11.5-14.5); WBC 8.88 X1000 (4.8-10.8)
[2019-03-26 07:12] LABS: AGAP 14; BUN 10 mg/dL (8-22); CALCIUM 8.5 mg/dL (8.8-10.2); CHLORIDE 96 mmol/L (98-107); COSMO 272; CREATININE 0.7 mg/dL (0.7-1.2); ESTIMATED GFR > 60; GLUCOSE 109 mg/dL (70-104); POTASSIUM 2.9 mmol/L (3.5-5.1); SODIUM 136 mmol/L (136-145); TCO2 26 mmol/L (25-35)
[2019-03-26] MEDS: TEFLARO 600 MG in NS 250 ML IV SCH ×2 (09:01→20:41)
[2019-03-26] MEDS: PERIDEX MT SCH ×2 (09:01→20:39)
[2019-03-26] MEDS: ATIVAN PO PRN ×2 (09:10→20:41)
[2019-03-26] MEDS ORDERED: MAGNESIUM SULFATE 2 GM/S.W.I. 2 GM/50 ML IVPB IV ONE (11:35)
--- NOTE | 2019-03-26 11:48 | Diag Imaging Result Doc PS360 ---
EXAM: XRAY PELVIS W/HIP 2-3VW LT 03/26/2019 HISTORY: fell at home has hip and back pain TECHNIQUE: AP pelvis and left hip three views COMMENT: There is marked narrowing of both hip joint spaces with [id number] contact and subchondral cyst formation. There is periarticular calcification particularly on the left side. There is some flattening of the femoral heads particularly on the left. The possibility of previous ischemic necrosis cannot be excluded. There is no evidence of acute fracture or dislocation. There is calcium pyrophosphate deposition in the symphysis pubis. IMPRESSION: Severe bilateral hip arthritis. No evidence of acute bony abnormality. Electronically signed by Bobby Arreola 03/26/2019 11:46 AM
--- NOTE | 2019-03-26 12:04 | Diag Imaging Result Doc PS360 ---
MRI LUMBAR SPINE W/WO CONTRAST - 03/26/2019 INDICATION: fell at home COMPARISON: None FINDINGS: There is severe patient motion artifact. Alignment is anatomic. There is a benign hemangioma in T2. Vertebral body heights are preserved. No bone marrow edema. No fracture or subluxation. The conus is seen at T12 and appears normal. Soft tissues are clear. There is extensive primarily anterior degenerative osteophyte formation. This is worst at T12-L1. At T12-L1 there is no stenosis. At L1-L2 there is severe bilateral facet and ligamentum flavum hypertrophy. There is mild bilateral neural foraminal stenosis. There is mild to moderate central canal stenosis. At L2-L3 there is a large disc bulge with severe facet and ligamentum flavum hypertrophy. There is severe central canal stenosis. There is moderate bilateral neural foraminal stenosis. There is a small central posterior disc herniation measuring a couple millimeters. At L3-L4 there is severe disc bulge with marked facet and ligament flavum hypertrophy. There is critical central canal stenosis. There is severe bilateral neural foraminal stenosis. At L4-L5 there is a huge disc bulge with marked facet and ligament flavum hypertrophy. There is critical central canal stenosis. There is moderate to severe bilateral neural foraminal stenosis. At L5-S1 there is a disc bulge and facet hypertrophy. There is severe bilateral neural foraminal stenosis. IMPRESSION: Advanced lumbar spondylosis. No fracture or subluxation. Electronically signed by Luis Enrique Fu 03/26/2019 12:02 PM
--- NOTE | 2019-03-26 12:06 | Diag Imaging Result Doc PS360 ---
MRI THORACIC SPINE W/WO CON - 03/26/2019 INDICATION: fell at home COMPARISON: None FINDINGS: There is severe patient motion artifact. Alignment is anatomic. No bone marrow edema. No fracture or subluxation. The thoracic cord is grossly normal. No severe central canal stenosis. There is marked multilevel anterior degenerative osteophyte formation indicating marked multilevel degenerative disc disease. IMPRESSION: Marked degenerative disc disease. No acute process. Electronically signed by Luis Enrique uF 03/26/2019 12:04 PM
[2019-03-26] MEDS: POTASSIUM CHLORIDE 20 MEQ/SWI 20 MEQ/100 ML IVPB IV SCH ×2 (13:20→17:07)
--- NOTE | 2019-03-26 14:55 | INFECTIOUS DISEASE PROGRESS NO ---
DATE: 03/26/2019 PRESENT ILLNESS: The patient has bilateral lower extremity cellulitis. Dr. Mccollum performed surgery on him yesterday. MEDICATIONS: The patient is on ceftaroline. PHYSICAL EXAMINATION: Vital Signs: Temperature is 97.5 degrees, pulse 54, respirations 16, blood pressure 122/66. Weight: The patient weighs 200 pounds. General: This is a morbidly obese chronically ill-appearing elderly male. He is in no acute distress. Head, Eyes, Ears, Nose, and Throat: The patient has decreased hearing, but his vision is okay. Neck: He does not have any pain in his neck when he moves his head. Lungs: Clear to auscultation. Cardiovascular: Regular heart rate. Abdomen: Protuberant, but soft and not tender. Neurologic: The patient is awake. He can move his arms well. He has difficulty moving his legs. There is no tremor. Extremities: The dressings were removed. Both legs to me look to be less edematous and erythematous and also the areas where eschar was present have all been debrided by Dr. Cline at surgery. DIAGNOSTIC STUDIES: The leg cultures are growing gram-positive cocci and gram-negative rods. Creatinine is 0.7, GFR is greater than 60. CBC shows a white count of 8880, hemoglobin 13, and platelet count 336,000. ASSESSMENT AND PLAN: For now, I am going to continue with ceftaroline pending final culture results. COMORBIDITIES: 1. Morbid obesity. 2. Gastroesophageal reflux disease. 3. Cigarette smoking. 4. Chronic leg edema. 5. Decreased hearing. cc: MD Rey Baires MD
--- NOTE | 2019-03-26 16:19 | CONSULTATION ---
DATE OF CONSULTATION: 03/26/2019 CONSULTING PHYSICIAN: Rudy Cline MD REASON FOR CONSULTATION: Hypokalemia. HISTORY OF PRESENT ILLNESS: Mr. Clark is a 68-year-old male who was admitted by Dr. Cline for debridement of ischemic ulcers on the right and left calves. His procedure was on 03/25/2019. It appears that he came to the ED on 03/24/2019. He has been hypomagnesemic and hypokalemic since his admission. He was treated with both magnesium and potassium. He is currently on normal saline with potassium. We rechecked his potassium this a.m. It was 2.9. His recheck on his magnesium was 1.2. We will go ahead and give him 2 g of magnesium as well as 2 bags of IV potassium at 20 mEq, and we will recheck both his magnesium and his potassium at 1600. PAST MEDICAL HISTORY: 1. Bilateral lower extremity cellulitis with eschar. He has been treated by Dr. Cline as well as Dr. Rodolfo Newsome. 2. Hypertension. 3. Gastroesophageal reflux disease. 4. Chronic kidney disease. 5. Abdominal hernia. PAST SURGICAL HISTORY: 1. Cholecystectomy. 2. Debridement of ischemic ulcers on the right and left calves, performed by Dr. Rudy Cline this admission. ALLERGIES: No known drug allergies. CURRENT MEDICATIONS: 1. Teflaro 600 mg IV q.12 h. 2. Precedex 15 mL MT b.i.d. 3. D5 half-normal saline with KCl at 30 mEq IV at 100 mL/h. 4. Lovenox 40 mg subcutaneous daily. 5. Deming 10 one each p.o. q.6 h. p.r.n. 6. Ativan 1 mg p.o. b.i.d. p.r.n. 7. Morphine 1 to 4 mg IV q.2 h. p.r.n. 8. Zofran 4 mg p.o. q.4 h. p.r.n. 9. Zofran 4 mg p.o. q.4 h. p.r.n. HOME MEDICATIONS: 1. Elavil 50 mg p.o. at bedtime. 2. Buspirone 10 mg p.o. b.i.d. 3. Colace 100 mg p.o. b.i.d. 4. Fluconazole 1 tablet p.o. daily. 5. Lasix 20 mg p.o. daily. 6. Neurontin 600 mg p.o. t.i.d. 7. Deming 10/325 mg 1 each p.o. q.8h. p.r.n. 8. Methocarbamol 750 mg p.o. at bedtime. 9. Nystatin 1 application topical b.i.d. 10. Prilosec 20 mg p.o. daily. 11. MiraLAX 17 g p.o. daily. 12. Potassium chloride 1 tablet p.o. daily 10 mEq ER. 13. Flomax 0.4 mg p.o. daily. 14. Spiriva 2 puffs inhaled daily. 15. Triamcinolone 1 application topical b.i.d. 16. Triamterene/hydrochlorothiazide 3.75/25 mg caplet 1 each p.o. daily. LABORATORY DATA: Potassium 2.9, magnesium 1.2. PHYSICAL EXAMINATION: Vital Signs: Temperature is 97.5 degrees axillary, heart rate 48, blood pressure 142/66, O2 was 100% on room air. General: Mr. Clark is a 68-year-old gentleman who just came up from MRI and x-ray. He appears to be hard of hearing. He just wants to be placed on a bed [place] to have a bowel movement. In no acute distress. HEENT: Atraumatic, normocephalic. PERRL. Neck: Supple. Trachea midline. Cardiovascular: S1, S2 appreciated. No murmurs, gallops, or rubs noted. Respiratory: Lung sounds clear bilaterally. Bilaterally decreased in the bases. Gastrointestinal: Obese, soft, nontender, nondistended. Quiet bowel sounds. Extremities: His lower extremities are currently wrapped. Neurologic: Could not appreciate any focal deficits. ASSESSMENT AND PLAN: 1. Hypokalemia. We will continue with supplementation. We will recheck his potassium level at 1600 and daily. 2. Hypomagnesemia. We will continue with supplementation and recheck at 1600 and in the a.m. Further recommendation to follow physician evaluation and laboratory and diagnostic data. We appreciate this consult. Patient seen and examined by me face to face, all the laboratory, vitals signs and images were reviewed, patient has been admitted by surgery department, he has a history of hypertension, GERD, CKD, also he has been hypokalemic and hypomagnesemic, he is a heavy smoker, Dr Cline did a debridement of necrotic lesions of his calves, patient is complaining of pain in that area, we will provide pain medication, we will take care of his electrolytes, we will monitor this patient closely, I agree with the rest of the [employer]'s assessment and plan, Rey Aguilar MD. Dictated by JAIR Kelley for Rey Johnson MD cc: Rey Johnson MD [facility]
[2019-03-26 16:46] LABS: MAGNESIUM 1.9 mg/dL (1.5-2.7); POTASSIUM 3.8 mmol/L (3.5-5.1)
[2019-03-27] MEDS: NORCO-10 PO PRN ×4 (00:04→23:30)
[2019-03-27] MEDS: MORPHINE IV PRN ×6 (03:31→19:15)
[2019-03-27] MEDS: D5 1/2 NS + KCL 30 MEQ 1,000 ML IV SCH ×2 (06:20→18:43)
[2019-03-27] MEDS: LOVENOX SUBQ SCH (06:21)
[2019-03-27 07:28] LABS: AGAP 10; ALKALINE PHOSPHATASE 118 U/L (32-122); BUN 10 mg/dL (8-22); CALCIUM 8.6 mg/dL (8.8-10.2); CHLORIDE 98 mmol/L (98-107); COSMO 266; CREATININE 0.7 mg/dL (0.7-1.2); ESTIMATED GFR > 60; GLUCOSE 100 mg/dL (70-104); GOT 22 U/L (10-34); GPT 12 U/L (10-44); MAGNESIUM 1.7 mg/dL (1.5-2.7); POTASSIUM 4.2 mmol/L (3.5-5.1); SODIUM 133 mmol/L (136-145); TCO2 25 mmol/L (25-35); TOTAL BILIRUBIN 0.21 mg/dL (0.20-1.00); TOTAL PROTEIN 5.9 g/dL (6.3-8.3)
[2019-03-27] MEDS: TEFLARO 600 MG in NS 250 ML IV SCH (08:16)
[2019-03-27] MEDS: PERIDEX MT SCH ×2 (08:20→21:38)
[2019-03-27] MEDS ORDERED: ELAVIL PO PRN (09:44)
[2019-03-27] MEDS ORDERED: APRESOLINE IV PRN (09:46)
--- NOTE | 2019-03-27 09:53 | PROGRESS NOTE ---
DATE: 03/27/2019 SUBJECTIVE: Mr. Clark presented with bilateral lower extremity cellulitis. Cultures have grown gram-positive cocci and gram-negative rods. Other problems are morbid obesity, gastroesophageal reflux, cigarette smoking, chronic leg edema, decreased hearing and obesity. OBJECTIVE: General: Today his legs are hurting him. Did not eat much breakfast, did not like the food. Vital signs: Temp 97.9 degrees, pulse 52, respirations 18, blood pressure 149/72. HEENT: Pupils are equal. No distended neck veins. Lungs: Clear in all lung cornelius. Cardiovascular: Regular rhythm and rate without murmur. Urine output looks like it was almost 6 L so good urine output. IMAGING: Thoracic spine MRI marked degenerative disease. Lumbar spine MRI advanced lumbar spondylosis. No fracture, subluxation. Hip/pelvis x-ray severe bilateral hip arthritis. No evidence of acute bony abnormality. Dr. Cline did some debridement of ischemic ulcers in the right and left calf. ASSESSMENT AND PLAN: Status post debridement of ischemic ulcers in the right left calf. Procedure on 03/25/2019, came into the emergency room on 03/24/2019. He had some low magnesium and low potassium treated with supplemented magnesium and potassium. He is currently on some antibiotics. Getting ceftaroline 600 mg IV q.12 and D5 1/2 normal saline at 100 mL an hour. Lovenox 40 mg subcutaneous today, hydrocodone 10 mg q.6 hours. CULTURE DATA: His right leg grew out Serratia marcescens and strep pyogenes group A. The right leg Serratia marcescens, Pseudomonas aeruginosa, Staphylococcus aureus. This was from the 5th. cc: MD Rey Cowan MD
[2019-03-27] MEDS: SANTYL OINT TOP SCH (11:16)
[2019-03-27] MEDS: MAG-OX PO SCH ×2 (12:39→21:38)
[2019-03-27] MEDS: MAXIPIME 2 GM in NS 100 ML IV SCH ×2 (12:39→21:38)
[2019-03-27] MEDS: NICODERM PATCH TD SCH (12:40)
--- NOTE | 2019-03-27 15:08 | INFECTIOUS DISEASE PROGRESS NO ---
DATE: 03/27/2019 HISTORY OF PRESENT ILLNESS: The patient has bilateral leg cellulitis. Cultures from his legs have grown group A strep, oxacillin sensitive Staph aureus, Serratia marcescens, and Pseudomonas aeruginosa. MEDICATIONS: Currently, the patient is on ceftaroline. PHYSICAL EXAMINATION: Vital Signs: Temperature is 97.9 degrees, pulse 52, respirations 18, blood pressure 149/72. General: This is an obese, chronically ill-appearing, elderly male who is in no acute distress. Head/eyes/ears/nose/throat: He has decreased hearing but his vision is okay. I did not notice any white patches in his mouth. Neck: His neck is not stiff. Lungs: Clear to auscultation. Cardiovascular: Heart rate is regular. Abdomen: Protuberant but soft and nontender. Neurologic: The patient is awake. He can move his arms well but he has difficulty moving his legs. He does not have a tremor. Extremities: Both legs look less erythematous and swollen and both legs have had their eschars debrided by Dr. Cline. LAB AND X-RAY: There is no new radiographic study. Culture from the legs as mentioned above grew Staph aureus, group A strep, Serratia marcescens and Pseudomonas aeruginosa. The creatinine is 0.7. GFR is greater than 60. No CBC is back yet for today. ASSESSMENT AND PLAN: I have discontinued ceftaroline and instead have placed the patient on cefepime. COMORBIDITIES: Morbid obesity, gastroesophageal reflux disease, cigarette smoking, chronic leg edema, and decreased hearing. cc: MD Rey Baires MD
--- NOTE | 2019-03-27 16:32 | EKG Report ---
Test Performed on : 03/27/2019 4:11:07 PM Test Reason : Bradycardia Blood Pressure : / mmHG Vent. Rate : 092 BPM Atrial Rate : 092 BPM P-R Int : 220 ms QRS Dur : 100 ms QT Int : 372 ms P-R-T Axes : 055 027 035 degrees QTc Int : 460 ms Sinus rhythm. with 1st degree AV block. with frequent premature ventricular complexes. Otherwise normal ECG When compared with ECG of 23-FEB-2019 20:38, Previous ECG has undetermined rhythm, needs review Confirmed by Stacie BONE, Maximiliano Santos ([id number]) on 03/31/2019 9:59:39 AM
[2019-03-27] MEDS: SPIRIVA INH SCH (16:34)
--- NOTE | 2019-03-27 17:45 | PROGRESS NOTE ---
DATE: 03/27/2019 SUBJECTIVE: This patient is lying in bed. When I evaluated this patient he recently had a wound care procedure done, the surgeon was at the bedside and he is complaining of pain. We will continue with morphine and [place] as needed, electrolytes are better today and I will recheck all of then in the morning again, especially magnesium, potassium and phosphorus, we will continue to monitor this patient closely. He is heavy smoker, and this patient has been advised against tobacco use. We will Continue with daily cessation education. LABORATORY DATA: Sodium 133, potassium 4.2, chloride 98, bicarbonate 25, BUN 10, creatinine 0.7, glucose 100, calcium 8.6, magnesium 1.7, albumin 3. ASSESSMENT AND PLAN: Ischemic ulcers at the level of the right and left calcis status post debridement by Surgery Department on 03/25/2019, has a positive culture from legs both of them with Serratia marcescens, on the right side showed shows Streptococcus pyogenes and on the left leg shows also Pseudomonas aeruginosa and Staphylococcus aureus. Infectious Disease Department following this patient. He has been placed on cefepime which likely will cover all the organisms. OBJECTIVE: Vitals: Temperature 97.8 degrees, pulse 50, respiratory rate 16, blood pressure 153/64, oxygen saturation 99 on room air. HEENT: Head normocephalic. No trauma. PERRLA. Neck: Supple. No JVD. No masses. Central trachea. Chest: Clear to auscultation. Some wheezing, mostly expiratory. No rales. Abdomen: Soft, nontender, nondistended. No hepatosplenomegaly. Protuberant. Extremities: Both legs covered with a new dressing from a recent wound care procedure today. Neurological: Alert and oriented x3. No focal deficits. LABORATORY DATA: Sodium 133, potassium 4.2, chloride 98, bicarbonate 25, BUN 10, creatinine 0.7 glucose 100, calcium 8.6, magnesium 1.7. AST 22, ALT 12, alkaline phosphatase 118, albumin 3. ASSESSMENT AND PLAN: 1. Ischemic ulcers on the right and left calves with a positive culture ON the left side that showed Serratia marcescens and Streptococcus pyogenes, Pseudomonas aeruginosa and Staphylococcus aureus as well as Streptococcus pyogenes, this patient has been placed on cefepime. Infectious Disease Department on board as well as Surgery Department. 2. Hypokalemia, resolved, will continue to monitor this closely. 3. Hypomagnesemia, resolved. We will continue to monitor. 4. Hypertension. Blood pressure seems to be a little bit better. We will continue with same management for now. 5. Gastroesophageal reflux disease. Continue with proton pump inhibitors. 6. Chronic kidney disease. Stable. 7. Tobacco use. This patient has been highly advised against tobacco use. I will continue with daily cessation education, I will provide a nicotine patch. 8. Bradycardia, asymptomatic. We will continue to monitor patient. cc: Rey Johnson MD MTDD
[2019-03-27] MEDS: ATIVAN PO PRN (23:30)
[2019-03-28] MEDS: MORPHINE IV PRN ×7 (00:32→20:34)
[2019-03-28] MEDS: MAXIPIME 2 GM in NS 100 ML IV SCH ×3 (03:31→20:33)
[2019-03-28] MEDS: PRILOSEC PO SCH (06:30)
[2019-03-28] MEDS: D5 1/2 NS + KCL 30 MEQ 1,000 ML IV SCH (06:30)
[2019-03-28] MEDS: LOVENOX SUBQ SCH (06:30)
[2019-03-28] MEDS: NORCO-10 PO PRN ×3 (06:45→22:24)
[2019-03-28 06:56] LABS: BASO# 0.03 X1000 (0.0-0.2); BASO% 0.3 % (0.0-0.8); EOS# 0.26 X1000 (0.0-0.7); EOS% 2.9 % (0.0-10.0); HEMATOCRIT 38.9 % (42.0-52.0); HEMOGLOBIN 12.5 g/dL (14.0-18.0); IMM GRAN% 1.1 % (0.0-0.5); LYMPH# 1.18 X1000 (1.2-3.4); MCHC 32.1 g/dL (33-37); MONO% 7.7 % (1.7-9.3); NEUT# 6.78 X1000 (1.4-6.5); PLT 309 X1000 (130-400); RBC 4.47 XMIL (4.7-6.1); RDW 14.8 % (11.5-14.5); WBC 9.05 X1000 (4.8-10.8)
[2019-03-28 07:21] LABS: EOS 1 % (1-10); LYMPHS 14 % (21-51); MONO 6 % (1-9); SEGS 79 % (42-75)
[2019-03-28 07:30] LABS: AGAP 8; BUN 10 mg/dL (8-22); CALCIUM 8.9 mg/dL (8.8-10.2); CHLORIDE 99 mmol/L (98-107); COSMO 267; CREATININE 0.6 mg/dL (0.7-1.2); ESTIMATED GFR > 60; GLUCOSE 96 mg/dL (70-104); MAGNESIUM 1.7 mg/dL (1.5-2.7); PHOSPHORUS 2.6 mg/dL (2.7-4.5); POTASSIUM 5.1 mmol/L (3.5-5.1); SODIUM 134 mmol/L (136-145); TCO2 27 mmol/L (25-35)
[2019-03-28] MEDS: NICODERM PATCH TD SCH (08:00)
[2019-03-28] MEDS: MAG-OX PO SCH ×2 (08:00→20:37)
[2019-03-28] MEDS: PERIDEX MT SCH ×2 (08:00→20:37)
[2019-03-28] MEDS: SANTYL OINT TOP SCH (08:01)
--- NOTE | 2019-03-28 08:39 | PROGRESS NOTE ---
DATE: 03/28/2019 Mr. Clark is generally uncomfortable. He did get some sleep last night. He stated he continues to ask the question what are we are going to do about his legs and I explained to him he has some skin ulcers that we are going to have to debride and continue to see if we can improve. OBJECTIVE: Vital Signs: Temp 98.8 degrees, pulse 50, respirations 16, blood pressure 114/60. HEENT: Pupils are equal and round. Lungs: Are clear in all lung cornelius. Cardiovascular: Regular rhythm and rate without murmur or S3. Urine output is 1400 mL. ASSESSMENT AND PLAN: 1. Ischemic ulcers on the right and left calves with positive blood culture on the left side that showed Serratia marcescens, Staphylococcus pyogenes. He has Pseudomonas aeruginosa as well as Staphylococcus pyogenes and patient has been placed on cefepime. 2. Hypokalemia which is supplemented, resolved. 3. Hypomagnesemia. Continue to monitor. 4. Hypertension. 5. Gastroesophageal reflux disease on proton pump inhibitor. 6. Chronic kidney disease which is stable. The ulcers appear to be improving. He continued topical care. These appear to be ischemic ulcers in the right and left lower extremity. Dr. Newsome is following. I think his debridement was on 03/25/2019, came to the emergency room on 03/24/2019. CURRENT LABORATORY DATA: Today sodium 134, potassium 5.1, chloride 99, BUN 10, creatinine 0.6. White blood cell count 9050, hematocrit is 38, platelet count 309,000. REVIEW OF ORDERS: Taking Elavil 50 mg at bedtime p.r.n. He is getting D5 1/2 normal saline at 50 mL an hour. Getting cefepime 2 grams IV q.8. He is on a nicotine patch. Getting Flomax 0.4 mg a day and on some breathing treatments, tiotropium bromide 2 puffs daily. COMORBIDITIES: Hypertension, gastroesophageal reflux disease, chronic kidney disease and abdominal hernia. cc: MD Rey Cowan MD
[2019-03-28] MEDS ORDERED: SODIUM PHOSPHATE 20 MMOL in NS 250 ML IV ONE (09:14)
[2019-03-28] MEDS: SPIRIVA INH SCH ×2 (09:41→18:43)
[2019-03-28] MEDS: FLOMAX PO SCH (11:34)
[2019-03-28] MEDS: 1/2 NS 1,000 ML IV SCH (18:08)
--- NOTE | 2019-03-28 18:10 | PROGRESS NOTE ---
DATE: 03/28/2019 SUBJECTIVE: This patient is lying in bed. At the moment of my evaluation he was sleeping. I woke him up, and it looks like he is a little bit confused, asking me what is going on with his legs. I explained to him the whole situation. We will continue with the same management. Electrolytes look better today as well. I will stop the fluids with the potassium and I will keep him on just half normal saline without potassium. OBJECTIVE: Vital signs: Temperature 98.5 degrees, pulse 48, respiratory rate 16, blood pressure 118/30, oxygen saturation 92% on room air.HEENT: Head normocephalic. No trauma. PERRLA. Neck supple. No JVD. No masses. Central trachea. Chest clear to auscultation. No wheezing. No rales. Abdomen soft, nontender, nondistended. No hepatosplenomegaly. Protuberant. Extremities: Both legs are covered with a dressing. He is complaining of pain. Neurologic: This patient is sleepy but arousable. He seems to be confused. He is oriented to person. He is able to say his name. LABORATORY DATA: WBC 9, hemoglobin 12.5, hematocrit 38.9, platelets 309,000. Sodium 134, potassium 5.1, chloride 99, bicarbonate 27, BUN 10, creatinine 0.6, glucose 96, calcium 8.9, phosphorus 2.6, magnesium 1.7. ASSESSMENT AND PLAN: 1. Ischemic ulcers on the right and left calves, with positive culture on the left side that showed Serratia marcescens and Streptococcus pyogenes, Pseudomonas aeruginosa and Staphylococcus aureus as well. Also he has a positive culture on the right side showing basically most of those bacteria. This patient has been placed on antibiotics by Infectious Disease Department. We will just monitor. 2. Hypokalemia, resolved. I will stop the potassium that has been provided through the intravenous fluids. 3. Hypomagnesemia, resolved. 4. Hypertension. Continue with same management. 5. Gastroesophageal reflux disease. Continue with proton pump inhibitors. 6. Chronic kidney disease, stable. 7. Bradycardia, asymptomatic. Electrocardiogram showed a 3rd-degree atrioventricular block and some premature ventricular contractions. 8. Tobacco use. This patient has been advised against tobacco use. We will continue with daily cessation education. 9. Mild confusion today. We will just monitor for now. No issues. cc: MD Maximiliano Fofana MD
[2019-03-28] MEDS: ATIVAN PO PRN (22:24)
[2019-03-29] MEDS: MAXIPIME 2 GM in NS 100 ML IV SCH ×3 (05:23→20:53)
[2019-03-29] MEDS: LOVENOX SUBQ SCH (05:23)
[2019-03-29] MEDS: PRILOSEC PO SCH ×2 (05:23→06:56)
[2019-03-29] MEDS: MORPHINE IV PRN ×8 (05:24→22:54)
[2019-03-29] MEDS: SANTYL OINT TOP SCH (08:07)
[2019-03-29] MEDS: MAG-OX PO SCH ×2 (08:07→20:52)
[2019-03-29] MEDS: FLOMAX PO SCH (08:07)
[2019-03-29] MEDS: NICODERM PATCH TD SCH (08:07)
[2019-03-29] MEDS: PERIDEX MT SCH ×2 (08:07→20:52)
[2019-03-29] MEDS: SPIRIVA INH SCH (08:15)
[2019-03-29] MEDS: ATIVAN PO PRN ×2 (11:31→20:53)
[2019-03-29] MEDS: 1/2 NS 1,000 ML IV SCH (12:32)
--- NOTE | 2019-03-29 13:28 | PROGRESS NOTE ---
DATE: 03/29/2019 SUBJECTIVE: Mr. Clark is still hurting in his back. That is his main complaint. He wants to get up and so we are going to see if we can set him up in a chair. His right leg wounds appear to be healing so we did change his dressings this morning. He has good granulation tissue there. He remains afebrile. OBJECTIVE: Temperature 98.4 degrees, pulse 97, respirations 18, blood pressure 161/94. Pupils are equal and round. Lungs are clear in all lung cornelius. Cardiovascular Examination: Regular rhythm and rate without murmur or S3. ASSESSMENT AND PLAN: 1. Ischemic ulcers in the right leg and some on the left calf. Positive culture on the left side showed Serratia marcescens and also Staphylococcus pyogenes. Pseudomonas aeruginosa and Staphylococcus aureus as well was growing from his wounds. He has a positive culture on the right side showing basically most of this bacteria so continue broad-spectrum antibiotic and topical care. The wounds seem to be healing. 2. Presented with hypokalemia and hypomagnesemia. We have supplemented those and that is much better. 3. Hypertension. Blood pressure well controlled. 4. Gastroesophageal reflux. Continue proton pump inhibitors. 5. Chronic kidney disease, which is stable. 6. Bradycardia, asymptomatic. Electrocardiogram showed third-degree atrioventricular block with some premature ventricular contractions. Reviewed electrocardiogram and strips. I do not see a third-degree block. I do see some bigeminy. I see a first-degree atrioventricular block at times and frequent premature ventricular contractions. We will sit him up in a chair and see if we can increase his activity. I think he will be ready to be discharged tomorrow. I do not see any change in his medications or orders at this time. REVIEW OF ORDERS: He is on amitriptyline 50 mg a day, Lovenox 40 mg subcutaneous daily. Put him on magnesium oxide 800 mg b.i.d. He is on cefepime 2 g q.8. Getting morphine 1 to 4 mg IV q.2 hours p.r.n. pain. He is on a nicotine patch 14 mg. Also treating him for benign prostatic hypertrophy. He is on Flomax 0.4 mg a day. I do not see any change. See if we can get him up and increase his activity. cc: Maximiliano Quinones MD
[2019-03-29] MEDS: NORCO-10 PO PRN (22:54)
[2019-03-30] MEDS: MAXIPIME 2 GM in NS 100 ML IV SCH ×2 (04:28→12:40)
[2019-03-30] MEDS: MORPHINE IV PRN ×2 (04:28→11:13)
[2019-03-30] MEDS: NORCO-10 PO PRN (06:22)
[2019-03-30] MEDS: PRILOSEC PO SCH (06:22)
[2019-03-30] MEDS: LOVENOX SUBQ SCH (06:23)
[2019-03-30 06:42] LABS: BASO# 0.03 X1000 (0.0-0.2); BASO% 0.4 % (0.0-0.8); EOS# 0.19 X1000 (0.0-0.7); EOS% 2.8 % (0.0-10.0); HEMATOCRIT 38.4 % (42.0-52.0); HEMOGLOBIN 12.4 g/dL (14.0-18.0); LYMPH# 0.86 X1000 (1.2-3.4); LYMPH% 12.8 % (20.5-51.1); MCH 28.3 PG (27-31); MCHC 32.3 g/dL (33-37); MCV 87.7 FL (81-99); MONO# 0.58 X1000 (0.11-0.59); MONO% 8.6 % (1.7-9.3); MPV 10.8 FL (7.4-10.4); NEUT# 5.08 X1000 (1.4-6.5); NEUT% 75.4 % (42.2-75.2); PLT 295 X1000 (130-400); RBC 4.38 XMIL (4.7-6.1); RDW 14.9 % (11.5-14.5); WBC 6.74 X1000 (4.8-10.8)
[2019-03-30 07:33] LABS: AGAP 13; BUN 9 mg/dL (8-22); CALCIUM 8.8 mg/dL (8.8-10.2); CHLORIDE 101 mmol/L (98-107); COSMO 268; CREATININE 0.6 mg/dL (0.7-1.2); ESTIMATED GFR > 60; GLUCOSE 80 mg/dL (70-104); POTASSIUM 4.1 mmol/L (3.5-5.1); SODIUM 135 mmol/L (136-145); TCO2 21 mmol/L (25-35)
[2019-03-30] MEDS: SPIRIVA INH SCH (08:05)
[2019-03-30] MEDS: PERIDEX MT SCH (10:55)
[2019-03-30] MEDS: FLOMAX PO SCH (10:55)
[2019-03-30] MEDS: MAG-OX PO SCH (10:55)
[2019-03-30] MEDS: NICODERM PATCH TD SCH (11:03)
[2019-03-30] MEDS: SANTYL OINT TOP SCH (11:03)
[2019-03-30] MEDS: ATIVAN PO PRN (11:11)
[2019-03-30] MEDS: 1/2 NS 1,000 ML IV SCH (11:11)
[2019-03-30 11:45] VITALS: BP 145/70
--- NOTE | 2019-03-30 14:16 | INFECTIOUS DISEASE PROGRESS NO ---
DATE: 03/30/2019 The patient is being discharged today by Dr. Cline on Keflex and Levaquin. He will be seeing Dr. Cline, who will be managing his infection as an outpatient. cc: MD Maximiliano Baires MD
--- NOTE | 2019-04-05 11:59 | DISCHARGE SUMMARY ---
ADMISSION DATE: 03/24/2019 DISCHARGE DATE: 03/30/2019 DIAGNOSIS: Cellulitis of both lower extremities. PROCEDURE: Debridement. 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 He was admitted recently with incisional hernia and a partial bowel obstruction, pain with hemorrhoids, as well as ischemic changes in his left and his right leg. Dr. Thornton performed a colonoscopy, revealing no stricture and no recurrent tumor. Dr. Hoskins evaluated the patient with noninvasive Doppler studies as well as an arteriogram, a CT scan guided arteriogram revealing some significant aortoiliac disease but with distal recanalization and flow so he did not recommend any surgery. The patient has subsequently been allowed home with improvement. He was readmitted with worsening cellulitis in the right and the left leg. The wounds were debrided. They eventually grew staphylococcus, streptococcus, serratia, and pseudomonas. Dr. Newsome was consulted for broad-spectrum antibiotics. These wounds did improve after debridement and with the help of the wound nurse, Adriana Jaffe. He was significantly improved at discharge. DISCHARGE MEDICATIONS: Include Levaquin and Bactrim. FOLLOWUP: He will be seen in the office in 1 week's time. cc: MD Maximiliano Shipley MD
== END 2019-03-30 14:27 | disposition home health service (06) | DRG 603 ==
LOC: SUPCPDRO → ED 12:42 → 4N 18:34
PROVIDERS: ADMIT Emergency Medicine; ATTEND Surgery
CPT/HCPCS: 70450; 71010; 71045; 72157; 72158; 73502; 80048; 80053; 80101; 80301; 80307; 80324; 80345; 80346; 80353; 80358; 80361; 80365; 81001; 83735; 83992; 84100; 84132; 85025; 87040; 87070; 87075; 87077; 87186; 87205; 93005; 93010; 94640; 94761; 94799; 96365; 96366; 96367; 96368; 99285; A9270; G0431; G0434; G0479; G0480; J0360; J0692; J0696; J0712; J1170; J1650; J2270; J2405; J2543; J3010; J3370; J3475; J3480; J7040; J7050

== ENCOUNTER 2019-04-13 07:26 | Inpatient (IN) ==
[2019-04-13] MEDS ORDERED: ZOFRAN IV ONE (07:43)
[2019-04-13] MEDS ORDERED: NS 1,000 ML IV ONE (07:43)
--- NOTE | 2019-04-13 07:53 | EKG Report ---
Test Performed on : 04/13/2019 07:49:44 AM Test Reason : cachexia Blood Pressure : / mmHG Vent. Rate : 151 BPM Atrial Rate : 151 BPM P-R Int : 146 ms QRS Dur : 094 ms QT Int : 320 ms P-R-T Axes : 028 -05 -62 degrees QTc Int : 507 ms Sinus tachycardia. with occasional premature ventricular complexes. Possible Inferior infarct , age undetermined Cannot rule out Anterior infarct , age undetermined Abnormal ECG When compared with ECG of 27-MAR-2019 16:11, AL interval has decreased Vent. rate has increased BY [address] now depressed in Inferior leads ST now depressed in Anterolateral leads T wave inversion now evident in Inferior leads Unconfirmed Result
[2019-04-13 08:41] LABS: BASO# 0.04 X1000 (0.0-0.2); BASO% 0.2 % (0.0-0.8); EOS# 0.02 X1000 (0.0-0.7); EOS% 0.1 % (0.0-10.0); HEMATOCRIT 38.9 % (42.0-52.0); HEMOGLOBIN 13.5 g/dL (14.0-18.0); IMM GRAN# 0.26 X1000 (0.0-0.04); IMM GRAN% 1.1 % (0.0-0.5); LYMPH# 0.99 X1000 (1.2-3.4); LYMPH% 4.1 % (20.5-51.1); MCH 27.6 PG (27-31); MCHC 34.7 g/dL (33-37); MCV 79.4 FL (81-99); MONO% 5.7 % (1.7-9.3); MPV 10.7 FL (7.4-10.4); NEUT# 21.67 X1000 (1.4-6.5); NEUT% 88.8 % (42.2-75.2); PLT 347 X1000 (130-400); RDW 14.6 % (11.5-14.5); WBC 24.38 X1000 (4.8-10.8)
--- NOTE | 2019-04-13 08:41 | PROVIDER DOCUMENTATION ---
HPI-Abdominal Pain/GI Problem - General Chief Complaint: General Adult Stated Complaint: decreased appetite Time Seen by Provider: 04/13/19 07:34 Source: patient Allergies/Adverse Reactions: Patient Allergies Allergy/AdvReac Type Severity Reaction Status Date / Time No Known Allergies Allergy Verified 04/13/19 11:57 Home Medications: Home Medication List Medication Instructions Recorded Confirmed Last Taken Type Amitriptyline [Elavil] 50 mg PO QHS PRN 07/31/12 04/13/19 02/22/19 History Omeprazole Magnesium 20 mg PO DAILY 07/31/12 04/13/19 07/31/12 08:00 History Triamterene/Hydrochlorothiazid 1 each PO DAILY 07/31/12 04/13/19 02/23/19 History [Triamterene-Hctz 37.5-25 mg Cp] Buspirone HCl 10 mg PO BID 02/24/19 04/13/19 Unknown History Fluconazole 1 tab PO DAILY 02/24/19 04/13/19 Unknown History Furosemide 20 mg pe PO DAILY PRN 02/24/19 04/13/19 Unknown History Gabapentin [Neurontin] 600 mg PO TID 02/24/19 04/13/19 Unknown History Methocarbamol 750 mg PO HS 02/24/19 04/13/19 Unknown History Nystatin 1 applicatn TOP BID 02/24/19 04/13/19 Unknown History Polyethylene Glycol 3350 17 gm PO DAILY 02/24/19 04/13/19 Unknown History Potassium Chloride 1 tab PO DAILY PRN 02/24/19 04/13/19 Unknown History Tiotropium [place] [Spiriva 2 puff INHALATION DAILY 02/24/19 04/13/19 Unknown History Respimat] Triamcinolone Acetonide 1 applicatn TOP BID 02/24/19 04/13/19 Unknown History Docusate Sodium [Colace] 100 mg PO BID #40 cap 03/06/19 04/13/19 Unknown Rx Tamsulosin [Flomax] 0.4 mg PO DAILY #20 cap 03/06/19 04/13/19 Unknown Rx Aspirin/Calcium Carbonate/Mag 325 mg PO DAILY 03/27/19 04/13/19 Unknown History [Aspirin Buffered 325 mg Tab] Montelukast Sodium 10 mg PO QHS 03/27/19 04/13/19 Unknown History Trazodone [Desyrel] 50 mg PO QHS 03/27/19 04/13/19 Unknown History Cephalexin [Keflex] 500 mg PO TID #21 cap 03/30/19 04/13/19 Unknown Rx Hydrocodone/Acetaminophen [[place] 1 ea PO Q6H PRN #20 tab 03/30/19 04/13/19 Unknown Rx 10-325 Tablet] Levofloxacin [Levaquin] 500 mg PO DAILY #10 tab 03/30/19 04/13/19 Unknown Rx Multivitamin/Iron/Folic Acid 1 ea PO DAILY #100 tab 03/30/19 04/13/19 Unknown Rx [Multivitamin with Iron Tablet] - History of Present Illness-ABD Nature of Presenting Problems: 68 y/o WM comes to ER c/o not being able to eat for the past week saying that he has been vomiting and nothing tastes good. Pt admits to vomiting twice in the last day. Pt s last BM was 24hrs ago. Abdominal Pain Onset Location: reports: generalized abdomen Pain Radiation: reports: no radiation Quality of Pain: reports: aching, cramping Severity in ED: reports: mild Onset/Duration: reports: 1 week ago Timing: reports: still present Activities at Onset: reports: light activity Exposure to sick contacts?: No Modifying Factors: improves with: vomiting Associated Symptoms: reports: nausea, vomiting Last BM: 24 hours ago Dark Stools Present?: reports: none noticed Rectal Bleeding: reports: none Rectal Pain: reports: none # of Vomiting Episodes: 2 Emesis Description: reports: clear Bruising or Bleeding Gums?: No Similar Symptoms Previously?: Yes Recently seen or treated by another doctor?: No Review of Systems - Adult - REVIEW OF SYSTEMS - ADULT Constitutional: reports: no symptoms reported, see HPI Eyes: reports: no symptoms reported, see HPI Ears, Nose, Mouth & Throat: reports: no symptoms reported, see HPI Cardiovascular: reports: no symptoms reported, see HPI Respiratory: reports: no symptoms reported, see HPI Gastrointestinal: reports: see HPI, nausea, vomiting Genitourinary: reports: no symptoms reported, see HPI Musculoskeletal: reports: no symptoms reported, see HPI Integumentary: reports: no symptoms reported, see HPI Neurological: reports: no symptoms reported, see HPI Psychiatric: reports: no symptoms reported, see HPI Endocrine: reports: no symptoms reported, see HPI Hematologic/Lymphatic: reports: no symptoms reported, see HPI Allergic/Immunologic: reports: no symptoms reported, see HPI All Other Systems: Reviewed and Negative Past History - Adult - PAST MEDICAL HISTORY-ADULT Review of Records: reports: Nursing Assessment Review, Medications Reviewed, So cial history reviewed & non-contributory. - IMMUNIZATION STATUS Childhood Immunizations: See Nurse Assessment Flu Vaccine: See Nurse Assessment Physical Exam-General - PHYSICAL EXAM-ADULT Initial Vital Signs Reviewed: Yes - CONSTITUTIONAL General Appearance: appears well, alert, no apparent distress - EYES Eyes: PERRL/EOMI - HEAD, EARS, NOSE, MOUTH & THROAT HENMT: normocephalic/atraumatic, moist mucous membranes, normal ENT inspection - NECK Neck: non-tender, full range of motion, supple, normal inspection - RESPIRATORY Respiratory: chest non-tender, lungs clear, normal breath sounds, no pleuratic chest pain, no respiratory distress, no accessory muscle use - CARDIOVASCULAR Cardiovascular: normal peripheral pulses, no edema, no gallop, no JVD, no murmur - GASTROINTESTINAL (ABDOMEN) Abdominal Exam: normal bowel sounds, soft, no pulsatile mass, tenderness (mild abdo tenderness generalized with palpation), hernia (ventral surgical abdo wall hernia noted lower left quad) - LYMPHATIC Lymphatic: no adenopathy - SKIN Integumentary: normal color, normal turgor - NEUROLOGIC 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, grossly normal, no motor/sensory deficits - PSYCHIATRIC Psych/Mental Status: normal mood/affect, normal thought content, normal thought process, oriented x 3 Progress - PLAN OF CARE/RESULTS Progress/Plan/Lab Results: Vital Signs - 8 hr 04/13/19 07:59 Temperature 98.7 F Pulse Rate 120 H Respiratory Rate 18 Blood Pressure 109/70 O2 Sat by Pulse Oximetry 96 Orders Category Date Time Status Nursing- Obtain EKG ONCE Care 04/13/19 07:43 Active CBC WITH ELECTRONIC DIFF [HEME] Stat Lab 04/13/19 08:30 Ordered COMPREHENSIVE METABOLIC PANEL [CHEM] Stat Lab 04/13/19 08:30 Ordered TROPONIN T Stat Lab 04/13/19 08:30 Ordered URINALYSIS [URINALYSIS] Stat Lab 04/13/19 07:43 Uncollected 0.9% Sodium Chloride Inj [Ns] 1,000 ml Med 04/13/19 07:43 Active IV 999 mls/hr Ondansetron [Zofran] Med 04/13/19 07:43 Discontinued 4 mg IV NOW ONE EKG [EKG] Stat Ther 04/13/19 07:43 Draft Result Diagrams: 04/13/19 08:30 04/13/19 08:30 - EKG 1 Time of EKG reading by physician:: 07:49 EKG Read and Signed by:: Dave Dan EKG Interpretation (*Must complete 3 of following elements*): Abnormal (cannot rule out anterior infarct, age undetermined) Rate: 151 Rhythm: sinus tachycardia with occasional premature ventricular complexes [place]: normal [place] Interval: normal Comments: possible inferior infarct, age undetermined; 2 Time of EKG reading by physician:: 08:26 EKG Read and Signed by:: Dave Dan EKG Interpretation (*Must complete 3 of following elements*): Abnormal Rate: 120 Rhythm: undetermined rhythm Comments: otherwise normal ECG - CONSULTS/PCP/HOSPITALIST Notification #1 *Consult/PCP/Hospitalist*: Adriana Tejeda Time Discussed: 12:10 Consult Disposition: Will see in ED, Admit Departure - Departure Date of Disposition Decision: 04/13/19 Time of Disposition Decision: 12:11 DIAGNOSIS: Leukocytosis, Hyponatremia, Hypocalcemia, UTI (urinary tract infection), Colitis, Cellulitis Disposition: ADMITTED INPATIENT 09 Certified Medical Emergency: Emergent Condition: Fair Referrals and Follow-Ups: Rudy Cline MD [Primary Care Provider] - - Critical Care Note This patient required my direct & personal management of CC.: No Attestation - Physician/ SUSANA Attestation Patient care was provided by Advanced Practice Provider:: No The physician spent face to face time with patient:: Yes Advanced Practice Provider documentation review:: Supervising physician onsite and consulted in the evaluation and care of this patient. The physician did have a face to face encounter with the patient.
[2019-04-13 09:10] LABS: ESTIMATED GFR > 60
[2019-04-13 09:15] LABS: AGAP 21; ALB/GLOB RATIO 1.2; ALBUMIN 2.8 g/dL (3.5-5.0); ALKALINE PHOSPHATASE 118 U/L (32-122); BUN 25 mg/dL (8-22); CALCIUM 8.2 mg/dL (8.8-10.2); CHLORIDE 87 mmol/L (98-107); COSMO 263; CREATININE 0.6 mg/dL (0.7-1.2); GLUCOSE 90 mg/dL (70-104); GOT 20 U/L (10-34); GPT 9 U/L (10-44); POTASSIUM 3.7 mmol/L (3.5-5.1); SODIUM 129 mmol/L (136-145); TCO2 21 mmol/L (25-35); TOTAL BILIRUBIN 0.56 mg/dL (0.20-1.00); TOTAL PROTEIN 5.2 g/dL (6.3-8.3)
[2019-04-13 10:07] LABS: URINE SOURCE CATH
[2019-04-13 10:19] LABS: BILIRUBIN URINE SMALL (NEGATIVE); BLOOD URINE MODERATE (NEGATIVE); COLOR YELLOW; GLUCOSE URINE NEGATIVE (NEGATIVE); KETONE URINE 20 mg/dL (NEGATIVE); LEUKOCYTES URINE SMALL (NEGATIVE); NITRITE URINE NEGATIVE (NEGATIVE); PROTEIN URINE 30 mg/dL (NEGATIVE); SP GRAVITY URINE 1.024; TURBIDITY URINE CLEAR (CLEAR); UROBILINOGEN URINE 2 mg/dL (NORMAL)
[2019-04-13 10:32] LABS: UR EPITHELIAL CELLS <10 /HPF (<10); URINE BACTERIA NEGATIVE /HPF; URINE RBC TNTC /HPF (<10); URINE WBC <10 /HPF (<10)
[2019-04-13 10:37] LABS: URINE YEAST NONE SEEN
--- NOTE | 2019-04-13 11:48 | Diag Imaging Result Doc PS360 ---
EXAM: CT ABD/PELVIS W/IV CONT ONLY 04/13/2019 HISTORY: abdo pain, vomiting TECHNIQUE: This exam was performed using automated exposure control, adjustment of mA or kV according to patient size, and/or use of iterative reconstruction technique. COMMENT: There are platelike opacities in the lung bases bilaterally which have not changed since 02/23/2019. This is presumably due to fibrosis. The aorta is slightly distended to below the level of the renal arteries measuring a maximum of 2.2 cm in AP dimension. At the time the previous examination, this measured 2.4 cm. There is an accessory left renal artery. The mesenteric vessels are patent. There is some dilatation of the left common iliac artery to 15 mm. The distal right common iliac artery also measures up to 15 mm. The liver and spleen are stable in appearance. The kidneys contain multiple cortical cysts. There is no evidence of hydronephrosis or solid mass. There is a fairly low density nodule arising from the left adrenal gland with a CT density of less than 7 Hounsfield units. This measures 15 mm in diameter and is similar in appearance to the previous study. There has apparently been resection of portions of the right adrenal gland. There is some cystic-appearing lucency in the head of the pancreas which was also apparently present at the time the previous study, now measuring almost 18 mm in greatest dimension. There is a smaller apparent cyst at the level of the neck of the pancreas. There is no evidence of significant adenopathy. There is mucosal thickening and paracolic inflammation in the colon particularly in the transverse and upper descending colon. The small bowel is not distended. Pelvis: The rectosigmoid colon demonstrates mucosal thickening and pericolic inflammation. There is a ventral hernia slightly to the left the midline containing some small bowel loops. There is much less dilatation of the small bowel compared to the previous study. There is no evidence of free fluid. The urinary bladder is not distended. There are severe degenerative changes in both hips. There are degenerative disc changes in the lumbar spine with spinal stenosis at the L4-5 level. IMPRESSION: Colitis. Ventral hernia. Improved small bowel obstruction compared to 02/23/2019. Cystic changes in the pancreas essentially stable since 02/23/2019. Electronically signed by Bobby Arreola 04/13/2019 11:46 AM
[2019-04-13 12:04] LABS: INR 1.03; PROTIME 14.3 Seconds (11.0-16.0)
[2019-04-13 12:05] LABS: PTT 29.1 Seconds (22.3-41.8)
[2019-04-13] MEDS ORDERED: LEVAQUIN 500 MG/D5W 500 MG/100 ML IVPB IV ONE (12:12)
--- NOTE | 2019-04-13 13:02 | Diag Imaging Result Doc PS360 ---
EXAM: CHEST-PORTABLE INDICATION: admit TECHNIQUE: One view COMPARISON: 03/24/2019 FINDINGS: The lungs are grossly clear. There is no discrete pleural fluid collection or pneumothorax. The cardiomediastinal silhouette and central vasculature are grossly unremarkable. IMPRESSION: No evidence of acute pathology by plain radiograph. Electronically signed by Segundo Sifuentes 04/13/2019 1:00 PM
--- NOTE | 2019-04-13 13:32 | EKG Report ---
Test Performed on : 04/13/2019 08:26:09 AM Test Reason : FAST HEART RATE Blood Pressure : / mmHG Vent. Rate : 120 BPM Atrial Rate : 129 BPM P-R Int : 202 ms QRS Dur : 086 ms QT Int : 316 ms P-R-T Axes : 055 006 048 degrees QTc Int : 446 ms Undetermined rhythm Otherwise normal ECG When compared with ECG of 13-APR-2019 07:49, (Unconfirmed) Current undetermined rhythm precludes rhythm comparison, needs review Borderline criteria for Inferior infarct are no longer present ST no longer depressed in Inferior leads ST less depressed in Anterior leads Unconfirmed Result
[2019-04-13] MEDS ORDERED: TYLENOL PO PRN (13:41)
[2019-04-13] MEDS ORDERED: ZOFRAN IV PRN (13:41)
[2019-04-13] MEDS: SANTYL OINT TOP SCH (15:05)
[2019-04-13] MEDS: FLAGYL 500 MG/NS 500 MG/100 ML IVPB IV SCH ×2 (15:05→21:09)
[2019-04-13] MEDS: NS 1,000 ML IV ONE ×2 (15:06→21:14)
--- NOTE | 2019-04-13 15:16 | HISTORY AND PHYSICAL ---
PRIMARY CARE PROVIDER: Dr. Rudy Cline. CHIEF COMPLAINT: Nausea and diarrhea, no appetite, right lower extremity pain. HISTORY OF PRESENT ILLNESS: Mr. Clark is a 68-year-old, male who was recently discharged on the [address] Cline for debridement of ischemic ulcer on his right calf. He had a debridement. Was discharged home with p.o. antibiotics. Other history, hypertension, GERD, chronic kidney disease, abdominal hernia. He states since his discharge, he has not had much of an appetite. He has had nausea and diarrhea, as well as right lower extremity pain. In the ED today, he was found have a white count of 24. Hyponatremia at 129 and negative lactate. Initially, he was tachycardic but he is afebrile. Blood pressures are normotensive. He was given 1 L fluid bolus. His CT of his abdomen and pelvis did show colitis. We will rule him out for C. difficile. He does have an improved small bowel obstruction compared to 02/23/2019. Dr. Cline is aware of the patient's admission and will assess his wounds and continue with appropriate treatment. PAST MEDICAL HISTORY: 1. Bilateral lower extremity cellulitis with eschar. He is status post debridement and treatment with Dr. Cline as well as Dr. Newsome. 2. Hypertension. 3. Gastroesophageal reflux disease. 4. Chronic kidney disease. 5. Abdominal hernia. 6. Recent small bowel obstruction that has improved on CT scan. PAST SURGICAL HISTORY: 1. Cholecystectomy. 2. Debridement of ischemic ulcers on the right and left calves performed by Dr. Cline. ALLERGIES: No known drug allergies. HOME MEDICATIONS: Have not been verified. PHYSICAL EXAMINATION: VITAL SIGNS: Temperature is 98.2 degrees, heart rate 69, respirations 22, blood pressure 128/92, O2 is 96% on room air. GENERAL: Mr. Clark is a 68-year-old, male who is lying on the stretcher in no acute distress but is grimacing secondary to right lower extremity pain. HEENT: Atraumatic, normocephalic. PERRL. NECK: Supple. Trachea midline. CARDIOVASCULAR: S1, S2 appreciated. No murmurs, gallops, or rubs noted. RESPIRATORY: Lung sounds clear bilaterally. GASTROINTESTINAL: Soft, nontender. Hyperactive bowel sounds in 4 quadrants. EXTREMITIES: Negative for edema. He does have wounds to his right lower extremity. I did not appreciate any oozing or eschar. No necrosis. NEUROLOGIC: No focal deficits noted. DIAGNOSTIC DATA: Abdomen and pelvis CT, colitis, ventral hernia, improved small bowel obstruction compared to 02/23/2019. Cystic changes in the pancreas essentially stable since 02/23/2019. Chest x-ray, no evidence of acute pathology. LABORATORY DATA: White count 24, hemoglobin and hematocrit 13 and 38, platelet count is 347,000. Sodium 129, potassium 3.7, BUN 25, creatinine 0.6, blood glucose of 90. Troponin was 0.017. Plasma lactate 1.2. Urinalysis was negative for bacteria, negative for nitrites. ASSESSMENT AND PLAN: 1. Colitis as seen on CT scan. Patient has complained of nausea and diarrhea. We will rule him out for Clostridium difficile colitis. Continue him on Levaquin and Flagyl for now pending results. 2. Recent treatment of bilateral lower extremity ulcers by Dr. Cline and Dr. Newsome. They do appear to be healing well. We have made Dr. Cline aware of the patient being inhouse. He will treat accordingly and we will get wound care on board. If memory serves from last admissions, his wounds have improved. 3. Ventral hernia. Aware. 4. Previous small bowel obstruction that has shown improved on the CT. 5. Gastroesophageal reflux disease. 6. Chronic kidney disease, stable. 7. Hypertension. We will continue home medications when verified. 8. Further recommendation to follow physician evaluation, laboratory and diagnostic data. Dictated by JAIR Kelley for Josue Bragg MD Addendum: Patient seen and examined by myself. Agree with REIMBURSEMENT MANAGER note. It reflects my assessment and plan. Patient is being admitted to hospital for acute colitis. He also has bilateral LE ulcers. Will consult ID and Dr. Cline who has seen this patient before. Will monitor patient closely. cc: Josue Bragg MD [facility]ALKathleen
[2019-04-13] MEDS: CARDIZEM PO SCH ×2 (16:58→21:09)
[2019-04-13] MEDS: NORCO-10 PO PRN (19:13)
[2019-04-13] MEDS: VANCOCIN PO SCH (19:13)
[2019-04-14] MEDS: VANCOCIN PO SCH ×4 (01:29→20:33)
[2019-04-14] MEDS: FLAGYL 500 MG/NS 500 MG/100 ML IVPB IV SCH ×5 (01:30→20:33)
[2019-04-14] MEDS: NORCO-10 PO PRN ×4 (01:30→21:32)
[2019-04-14] MEDS ORDERED: ROBAXIN PO ONE (02:55)
[2019-04-14] MEDS ORDERED: NEURONTIN PO ONE (02:55)
[2019-04-14] MEDS ORDERED: DESYREL PO ONE (02:56)
[2019-04-14] MEDS: CARDIZEM PO SCH ×5 (03:00→21:32)
[2019-04-14 05:30] LABS: BASO# 0.03 X1000 (0.0-0.2); BASO% 0.1 % (0.0-0.8); EOS# 0.03 X1000 (0.0-0.7); EOS% 0.1 % (0.0-10.0); HEMATOCRIT 34.2 % (42.0-52.0); HEMOGLOBIN 11.7 g/dL (14.0-18.0); IMM GRAN# 0.22 X1000 (0.0-0.04); IMM GRAN% 1.1 % (0.0-0.5); LYMPH# 0.94 X1000 (1.2-3.4); LYMPH% 4.6 % (20.5-51.1); MCH 27.4 PG (27-31); MCHC 34.2 g/dL (33-37); MCV 80.1 FL (81-99); MONO# 1.21 X1000 (0.11-0.59); MONO% 5.9 % (1.7-9.3); MPV 10.8 FL (7.4-10.4); NEUT# 18.14 X1000 (1.4-6.5); NEUT% 88.2 % (42.2-75.2); PLT 299 X1000 (130-400); RBC 4.27 XMIL (4.7-6.1); RDW 14.6 % (11.5-14.5); WBC 20.57 X1000 (4.8-10.8)
[2019-04-14 05:46] LABS: AGAP 19; BUN 21 mg/dL (8-22); CALCIUM 8.3 mg/dL (8.8-10.2); CHLORIDE 91 mmol/L (98-107); COSMO 266; CREATININE 0.6 mg/dL (0.7-1.2); ESTIMATED GFR > 60; GLUCOSE 79 mg/dL (70-104); POTASSIUM 2.6 mmol/L (3.5-5.1); SODIUM 132 mmol/L (136-145); TCO2 22 mmol/L (25-35)
--- NOTE | 2019-04-14 07:37 | EKG Report ---
Test Performed on : 04/13/2019 4:50:43 PM Test Reason : Elevated HR Blood Pressure : / mmHG Vent. Rate : 118 BPM Atrial Rate : 133 BPM P-R Int : 202 ms QRS Dur : 102 ms QT Int : 370 ms P-R-T Axes : 049 015 063 degrees QTc Int : 518 ms Sinus tachycardia. with frequent premature ventricular complexes. Otherwise normal ECG When compared with ECG of 13-APR-2019 08:26, (Unconfirmed) Previous ECG has undetermined rhythm, needs review Confirmed by Stacie BONE, Maximiliano Santos ([id number]) on 04/14/2019 5:30:37 PM
[2019-04-14] MEDS: CULTURELLE PO SCH ×2 (08:34→20:33)
[2019-04-14] MEDS: NEURONTIN PO SCH ×3 (08:34→20:33)
[2019-04-14] MEDS ORDERED: POTASSIUM CHLORIDE 60 MEQ in NS 500 ML IV ONE (09:33)
[2019-04-14] MEDS ORDERED: RID LICE KILLING SHAMPOO TOP ONE (10:05)
[2019-04-14] MEDS: NS 1,000 ML IV SCH (14:09)
[2019-04-14] MEDS: SANTYL OINT TOP SCH (14:10)
[2019-04-14] MEDS: LEVAQUIN 500 MG/D5W 500 MG/100 ML IVPB IV SCH (14:11)
[2019-04-14] MEDS ORDERED: MAGNESIUM SULFATE 2 GM/S.W.I. 2 GM/50 ML IVPB IV ONE (16:58)
--- NOTE | 2019-04-14 20:18 | PROGRESS NOTE ---
DATE: 04/14/2019 SUBJECTIVE: The patient states that he feels horrible. He complains of abdominal pain and multiple episodes of liquid stool. The patient also has lice in his hair and jarrett. OBJECTIVE: Vital Signs: Temperature 97.6 degrees, blood pressure 118/60, heart rate 58, respirations 20, O2 saturation is 100% on room air. General: This is a morbidly obese male, lying in bed in no acute distress. Heart: S1, S2, normal. Bradycardic. Lungs: Equal air entry bilaterally. Abdomen distended. Diffuse tenderness. Extremities: Multiple wounds to the right lower extremity. LABORATORY DATA: Sodium 132, potassium 2.6, chloride 91, CO2 is 22, BUN 21, creatinine 0.6, glucose 79, magnesium 1.5, calcium 8.3. ASSESSMENT AND PLAN: 1. Clostridium difficile colitis. Continue on oral vancomycin. 2. Right lower extremity wound. The patient is on antibiotic therapy. Wound Care is also following. 3. Hypokalemia. We will replace the patient's potassium. 4. Hypomagnesemia. We will replace the patient's magnesium. 5. Lice. The patient has received treatment. We will repeat in 7 days. 6. Morbid obesity. Aware. 7. Leukocytosis. Unchanged. We will continue to monitor for improvement. 8. Hyponatremia. Slightly improved. Continue with normal saline. 9. Benign prostatic hypertrophy. Continue on Flomax. 10. Chronic obstructive pulmonary disease. We will start bronchodilator therapy. 11. Deep vein thrombosis prophylaxis. We will start the patient on Lovenox. cc: Ashlee Miner MD [facility]
[2019-04-14] MEDS: LOVENOX SUBQ SCH (20:33)
[2019-04-14] MEDS: ROBAXIN PO SCH (20:33)
[2019-04-14] MEDS: DESYREL PO SCH (20:33)
--- NOTE | 2019-04-14 20:34 | Diag Imaging Result Doc PS360 ---
EXAM: ABDOMEN FLAT/UPRIGHT HISTORY: abdominal pain TECHNIQUE: Flat and upright, two views COMPARISON: 03/02/2019 FINDINGS: No free air beneath the diaphragm. There are surgical clips in the right upper quadrant. No organomegaly. Nonspecific bowel gas pattern. Prominent atherosclerosis. Bilateral hip arthritis. Degenerative spine changes. IMPRESSION: No free air. Electronically signed by Tim Banda 04/14/2019 8:32 PM
[2019-04-14] MEDS: DUONEB (A & A) INH SCH (23:45)
[2019-04-15] MEDS: FLAGYL 500 MG/NS 500 MG/100 ML IVPB IV SCH ×4 (02:01→20:42)
[2019-04-15] MEDS: VANCOCIN PO SCH ×4 (02:01→20:42)
[2019-04-15] MEDS: CARDIZEM PO SCH ×4 (04:02→21:39)
[2019-04-15] MEDS: NORCO-10 PO PRN ×3 (04:02→18:04)
[2019-04-15] MEDS: DUONEB (A & A) INH SCH ×4 (05:00→21:10)
[2019-04-15] MEDS: NS 1,000 ML IV SCH ×3 (05:49→11:56)
[2019-04-15] MEDS ORDERED: TIOTROPIUM BROMIDE Inhalation SCH (09:00)
[2019-04-15 09:08] LABS: AGAP 18; BUN 14 mg/dL (8-22); CALCIUM 8.1 mg/dL (8.8-10.2); CHLORIDE 96 mmol/L (98-107); COSMO 267; CREATININE 0.5 mg/dL (0.7-1.2); ESTIMATED GFR > 60; GLUCOSE 72 mg/dL (70-104); PHOSPHORUS 2.3 mg/dL (2.7-4.5); POTASSIUM 2.8 mmol/L (3.5-5.1); SODIUM 134 mmol/L (136-145); TCO2 20 mmol/L (25-35)
[2019-04-15] MEDS: FLOMAX PO SCH (09:40)
[2019-04-15] MEDS: NEURONTIN PO SCH ×3 (09:40→20:42)
[2019-04-15] MEDS: CULTURELLE PO SCH ×2 (09:40→20:43)
[2019-04-15] MEDS: SANTYL OINT TOP SCH (09:40)
[2019-04-15 10:03] LABS: BASO# 0.05 X1000 (0.0-0.2); BASO% 0.4 % (0.0-0.8); EOS% 0.8 % (0.0-10.0); HEMATOCRIT 35.6 % (42.0-52.0); HEMOGLOBIN 12.2 g/dL (14.0-18.0); IMM GRAN# 0.32 X1000 (0.0-0.04); IMM GRAN% 2.5 % (0.0-0.5); LYMPH# 0.99 X1000 (1.2-3.4); LYMPH% 7.6 % (20.5-51.1); MCH 27.9 PG (27-31); MCHC 34.3 g/dL (33-37); MCV 81.3 FL (81-99); MONO# 0.94 X1000 (0.11-0.59); MONO% 7.3 % (1.7-9.3); MPV 10.9 FL (7.4-10.4); NEUT# 10.55 X1000 (1.4-6.5); NEUT% 81.4 % (42.2-75.2); PLT 318 X1000 (130-400); RBC 4.38 XMIL (4.7-6.1); RDW 14.9 % (11.5-14.5); WBC 12.95 X1000 (4.8-10.8)
[2019-04-15] MEDS ORDERED: KLOR-CON PO ONE (10:24)
[2019-04-15] MEDS: SPIRIVA INH SCH (11:09)
[2019-04-15] MEDS: LEVAQUIN 500 MG/D5W 500 MG/100 ML IVPB IV SCH (11:56)
--- NOTE | 2019-04-15 17:16 | PROGRESS NOTE ---
DATE: 04/15/2019 SUBJECTIVE: The patient is resting comfortably in bed. He complains of pain in his right leg. OBJECTIVE: Vital Signs: Temperature 98.1 degrees, blood pressure 108/64, heart rate 82, respirations 17, O2 saturation is 100% on room air. General: This is a chronically ill-appearing male lying in bed, in no acute distress. Heart: S1, S2 normal. Regular rate and rhythm. Lungs: Clear to auscultation bilaterally. Abdomen: Distended. Positive bowel sounds. Soft. Extremities: No edema. No cyanosis. Neurologic: The patient is awake and alert. LABS: White blood cell count 12, hemoglobin 12, hematocrit 35, platelets 318,000. Sodium 134, potassium 2.8, chloride 96, CO2 20, BUN 14, creatinine 0.5, glucose 72, phosphorus 2.3, magnesium 1.8. ASSESSMENT AND PLAN: 1. Clostridium difficile colitis. Continue on oral vancomycin. 2. Right lower extremity wound. Continue with wound care. 3. Lice. The patient received treatment on April 14. We will continue to monitor. 4. Morbid obesity. Aware. 5. Leukocytosis. Improved. Continue on oral vancomycin. 6. Benign prostatic hypertrophy. Continue on Flomax. 7. Chronic obstructive pulmonary disease. Stable. 8. Deep vein thrombosis prophylaxis. Continue on Lovenox. 9. Will consult physical therapy. cc: Ashlee Miner MD
[2019-04-15] MEDS: DESYREL PO SCH (20:42)
[2019-04-15] MEDS: LOVENOX SUBQ SCH (20:43)
[2019-04-15] MEDS: ROBAXIN PO SCH (20:43)
[2019-04-16] MEDS: VANCOCIN PO SCH ×4 (02:46→20:21)
[2019-04-16] MEDS: NORCO-10 PO PRN ×3 (02:46→18:00)
[2019-04-16] MEDS: FLAGYL 500 MG/NS 500 MG/100 ML IVPB IV SCH ×3 (02:46→15:13)
[2019-04-16] MEDS: NS 1,000 ML IV SCH ×2 (02:50→18:00)
[2019-04-16] MEDS: CARDIZEM PO SCH ×4 (03:28→21:02)
[2019-04-16] MEDS: DUONEB (A & A) INH SCH ×4 (05:47→22:35)
[2019-04-16 08:02] LABS: BASO% 1.3 % (0.0-0.8); EOS# 0.15 X1000 (0.0-0.7); HEMATOCRIT 33.3 % (42.0-52.0); HEMOGLOBIN 11.2 g/dL (14.0-18.0); IMM GRAN% 9.2 % (0.0-0.5); LYMPH# 1.11 X1000 (1.2-3.4); LYMPH% 14.6 % (20.5-51.1); MCH 27.6 PG (27-31); MCHC 33.6 g/dL (33-37); MONO# 0.59 X1000 (0.11-0.59); MONO% 7.8 % (1.7-9.3); MPV 10.4 FL (7.4-10.4); NEUT# 4.95 X1000 (1.4-6.5); NEUT% 65.1 % (42.2-75.2); PLT 289 X1000 (130-400); RBC 4.06 XMIL (4.7-6.1); RDW 14.9 % (11.5-14.5)
[2019-04-16 08:19] LABS: LYMPHS 22 % (21-51); SEGS 78 % (42-75)
[2019-04-16 08:35] LABS: AGAP 11; BUN 10 mg/dL (8-22); CALCIUM 8.3 mg/dL (8.8-10.2); CHLORIDE 101 mmol/L (98-107); COSMO 269; CREATININE 0.5 mg/dL (0.7-1.2); ESTIMATED GFR > 60; GLUCOSE 93 mg/dL (70-104); POTASSIUM 3.4 mmol/L (3.5-5.1); SODIUM 135 mmol/L (136-145); TCO2 23 mmol/L (25-35)
[2019-04-16] MEDS: CULTURELLE PO SCH ×2 (08:54→20:21)
[2019-04-16] MEDS: NEURONTIN PO SCH ×3 (08:54→20:21)
[2019-04-16] MEDS: FLOMAX PO SCH (08:54)
[2019-04-16] MEDS: SANTYL OINT TOP SCH (08:55)
[2019-04-16] MEDS ORDERED: KLOR-CON PO ONE (09:16)
[2019-04-16] MEDS ORDERED: MAGNESIUM SULFATE 2 GM/S.W.I. 2 GM/50 ML IVPB IV ONE (09:16)
[2019-04-16] MEDS: SPIRIVA INH SCH (09:40)
[2019-04-16] MEDS: XANAX PO PRN (11:46)
[2019-04-16] MEDS: LEVAQUIN 500 MG/D5W 500 MG/100 ML IVPB IV SCH (13:39)
--- NOTE | 2019-04-16 16:08 | PROGRESS NOTE ---
DATE: 04/16/2019 SUBJECTIVE: The patient is resting comfortably in bed. No acute events noted overnight. He states that he is still having liquid stools. OBJECTIVE: Vital Signs: Temperature 97.9 degrees, blood pressure 115/65, heart rate 82, respirations 17, O2 saturation is 96% on room air. General: This is a chronically ill-appearing elderly male, lying in bed in no acute distress. Heart: S1, S2 normal. Regular rate and rhythm. Lungs: Equal air entry bilaterally. No crackles. No rales. Abdomen: Positive bowel sounds. Soft, nontender, nondistended. Extremities: No edema, no cyanosis. Neurologic: The patient is alert and oriented x3. LABORATORIES: White blood cell count 7.6, platelets 289,000. Sodium 135, potassium 3.4, chloride 101, BUN 10, creatinine 0.5, glucose 93, magnesium 1.6. ASSESSMENT AND PLAN: 1. Clostridium difficile colitis. Continue on oral vancomycin. The patient continues to have liquid stools. We will add Questran. Continue with lactobacillus. 2. Hypokalemia. We will replace the patient's potassium. 3. Hypomagnesemia. We will replace the patient's magnesium. 4. Anxiety disorder. We will start the patient on low-dose Xanax. 5. Right leg wound. Continue with wound care. 6. Morbid obesity. Aware. 7. Lice. Resolved. 8. Benign prostatic hypertrophy. Continue on Flomax. 9. Chronic obstructive pulmonary disease. Continue with bronchodilator therapy. 10. Insomnia. Continue on trazodone. 11. Deep vein thrombosis prophylaxis. Continue on Lovenox. cc: Ashlee Miner MD
[2019-04-16] MEDS: DESYREL PO SCH (20:21)
[2019-04-16] MEDS: ROBAXIN PO SCH (20:21)
[2019-04-16] MEDS: LOVENOX SUBQ SCH (20:21)
[2019-04-16] MEDS: QUESTRAN LIGHT PO SCH (20:22)
[2019-04-17] MEDS: VANCOCIN PO SCH ×4 (03:03→21:40)
[2019-04-17] MEDS: NORCO-10 PO PRN ×2 (03:04→09:07)
[2019-04-17] MEDS: CARDIZEM PO SCH ×4 (03:04→21:40)
[2019-04-17] MEDS: XANAX PO PRN ×2 (03:04→21:40)
[2019-04-17] MEDS: NS 1,000 ML IV SCH ×3 (04:12→18:10)
[2019-04-17] MEDS: DUONEB (A & A) INH SCH ×3 (05:26→16:09)
[2019-04-17] MEDS: PRILOSEC PO SCH (06:17)
[2019-04-17 07:57] LABS: BASO# 0.42 X1000 (0.0-0.2); BASO% 4.5 % (0.0-0.8); EOS# 0.21 X1000 (0.0-0.7); EOS% 2.3 % (0.0-10.0); HEMATOCRIT 36.9 % (42.0-52.0); HEMOGLOBIN 12.1 g/dL (14.0-18.0); IMM GRAN# 1.62 X1000 (0.0-0.04); IMM GRAN% 17.5 % (0.0-0.5); LYMPH# 1.39 X1000 (1.2-3.4); MCH 27.5 PG (27-31); MCHC 32.8 g/dL (33-37); MCV 83.9 FL (81-99); MONO# 0.54 X1000 (0.11-0.59); MONO% 5.8 % (1.7-9.3); MPV 10.6 FL (7.4-10.4); NEUT# 5.06 X1000 (1.4-6.5); NEUT% 54.9 % (42.2-75.2); PLT 293 X1000 (130-400); RDW 15.3 % (11.5-14.5); WBC 9.24 X1000 (4.8-10.8)
[2019-04-17] MEDS: FLOMAX PO SCH (09:06)
[2019-04-17] MEDS: CULTURELLE PO SCH ×2 (09:07→21:40)
[2019-04-17] MEDS: SANTYL OINT TOP SCH (09:07)
[2019-04-17] MEDS: NEURONTIN PO SCH ×3 (09:07→21:40)
[2019-04-17] MEDS ORDERED: KLOR-CON PO ONE (10:05)
[2019-04-17 10:19] LABS: AGAP 8; BUN 7 mg/dL (8-22); CALCIUM 8.7 mg/dL (8.8-10.2); CHLORIDE 105 mmol/L (98-107); COSMO 270; CREATININE 0.4 mg/dL (0.7-1.2); ESTIMATED GFR > 60; GLUCOSE 102 mg/dL (70-104); POTASSIUM 4.4 mmol/L (3.5-5.1); SODIUM 136 mmol/L (136-145); TCO2 23 mmol/L (25-35)
--- NOTE | 2019-04-17 11:01 | PROGRESS NOTE ---
DATE: 04/17/2019 SUBJECTIVE: The patient is resting comfortably. No acute events noted overnight. He is still having liquid stools. OBJECTIVE: Vital Signs: Temperature 97.4 degrees, blood pressure 125/62, heart rate 51, respirations 18, O2 saturation 97% on room air. General: This is a chronically ill-appearing elderly male lying in bed in no acute distress. Heart: S1, S2 normal. Bradycardic. Lungs: Clear to auscultation bilaterally. No wheezing. No rales. No rhonchi. Abdomen: Positive bowel sounds. Soft, nontender, nondistended. Extremities: No edema, no cyanosis. The patient's right leg is wrapped in a clean dry dressing. Neurologic: The patient is alert and oriented x3. LABORATORY DATA: White blood cell count 9.2, hemoglobin 12, hematocrit 36, platelets 293,000. ASSESSMENT AND PLAN: 1. Clostridium difficile colitis. Continue on oral vancomycin, lactobacillus and Questran. 2. Anxiety disorder. Continue on p.r.n. Xanax. 3. Right leg wound. Continue with wound care. 4. Morbid obesity. Aware. 5. Lice. Resolved. 6. Benign prostatic hypertrophy. Continue on Flomax. 7. Insomnia. Continue on trazodone. 8. Chronic obstructive pulmonary disease. Continue with bronchodilator therapy. 9. Deep vein thrombosis prophylaxis. Continue on Lovenox. 10. Continue with physical therapy. cc: Ashlee Miner MD
[2019-04-17] MEDS: SPIRIVA INH SCH (11:07)
[2019-04-17] MEDS: QUESTRAN LIGHT PO SCH ×2 (14:29→21:40)
[2019-04-17] MEDS: LOVENOX SUBQ SCH (21:39)
[2019-04-17] MEDS: DESYREL PO SCH (21:40)
[2019-04-17] MEDS: ROBAXIN PO SCH (21:40)
[2019-04-18] MEDS: DUONEB (A & A) INH SCH ×5 (00:41→23:30)
[2019-04-18] MEDS: VANCOCIN PO SCH ×4 (03:09→22:00)
[2019-04-18] MEDS: CARDIZEM PO SCH ×4 (03:10→21:59)
[2019-04-18] MEDS: NORCO-10 PO PRN ×4 (04:24→23:38)
[2019-04-18] MEDS: PRILOSEC PO SCH (06:52)
[2019-04-18 07:38] LABS: BASO# 0.28 X1000 (0.0-0.2); BASO% 2.6 % (0.0-0.8); EOS# 0.15 X1000 (0.0-0.7); EOS% 1.4 % (0.0-10.0); HEMATOCRIT 38.2 % (42.0-52.0); HEMOGLOBIN 12.5 g/dL (14.0-18.0); IMM GRAN# 1.64 X1000 (0.0-0.04); IMM GRAN% 15.5 % (0.0-0.5); LYMPH# 1.48 X1000 (1.2-3.4); MCH 27.2 PG (27-31); MCHC 32.7 g/dL (33-37); MONO# 0.73 X1000 (0.11-0.59); MONO% 6.9 % (1.7-9.3); MPV 10.1 FL (7.4-10.4); NEUT% 59.6 % (42.2-75.2); PLT 346 X1000 (130-400); RDW 15.6 % (11.5-14.5); WBC 10.58 X1000 (4.8-10.8)
[2019-04-18 08:01] LABS: BASO 2 % (0-1); EOS 2 % (1-10); LYMPHS 19 % (21-51); MONO 9 % (1-9); SEGS 60 % (42-75)
[2019-04-18 08:03] LABS: LARGE PLATELETS OCCASIONAL
[2019-04-18 08:11] LABS: AGAP 10; BUN 8 mg/dL (8-22); CHLORIDE 108 mmol/L (98-107); COSMO 276; CREATININE 0.5 mg/dL (0.7-1.2); ESTIMATED GFR > 60; GLUCOSE 99 mg/dL (70-104); MAGNESIUM 1.5 mg/dL (1.5-2.7); PHOSPHORUS 2.6 mg/dL (2.7-4.5); POTASSIUM 3.6 mmol/L (3.5-5.1); SODIUM 139 mmol/L (136-145); TCO2 21 mmol/L (25-35)
[2019-04-18] MEDS: SPIRIVA INH SCH (09:19)
[2019-04-18] MEDS: FLOMAX PO SCH (09:34)
[2019-04-18] MEDS: CULTURELLE PO SCH ×2 (09:34→22:00)
[2019-04-18] MEDS: NEURONTIN PO SCH ×3 (09:34→22:00)
[2019-04-18] MEDS: XANAX PO PRN ×2 (09:34→22:00)
[2019-04-18] MEDS: QUESTRAN LIGHT PO SCH ×2 (09:35→22:00)
[2019-04-18] MEDS: NS 1,000 ML IV SCH (09:35)
[2019-04-18] MEDS ORDERED: MAGNESIUM SULFATE 2 GM/S.W.I. 2 GM/50 ML IVPB IV ONE (09:59)
--- NOTE | 2019-04-18 10:22 | Diag Imaging Result Doc PS360 ---
EXAM: ABDOMEN FLAT/UPRIGHT 04/18/2019 HISTORY: abdominal pain TECHNIQUE: Flat and upright abdomen three views COMMENT: There is some gas throughout the colon. The small bowel is not distended. There is no evidence of gastric distention. There are numerous surgical clips present in the right upper quadrant. There is no evidence of organomegaly or mass. Compared to 04/14/2019 there is somewhat more gas in the transverse colon but less in the small bowel. IMPRESSION: Nonspecific abdomen. Electronically signed by Bobby Arreola 04/18/2019 10:19 AM
--- NOTE | 2019-04-18 12:10 | PROGRESS NOTE ---
DATE: 04/18/2019 SUBJECTIVE: The patient is resting comfortably in bed. He states that his stool has thickened up some. It is not watery anymore. OBJECTIVE: Vital Signs: Temperature 97.8 degrees, blood pressure 133/80, heart rate 91, respirations 18, O2 saturation 97% on room air. General: This is a morbidly obese male, lying in bed in no acute distress. Heart: S1, S2 normal. Regular rate and rhythm. Lungs: Clear to auscultation bilaterally. No wheezing. No rales. No rhonchi. Abdomen: Positive bowel sounds. Soft, nontender, nondistended. Extremities: There is 1+ edema in the right lower extremity. The right lower extremity is wrapped in a clean, dry dressing. Neurologic: The patient is very hard of hearing but alert and oriented x4. LABORATORY DATA: White blood cell count 10, hemoglobin 12, hematocrit 38, platelets 346,000. Sodium 139, potassium 3.6, chloride 108, CO2 21, BUN 8, creatinine 0.5, glucose 99, magnesium 1.5. ASSESSMENT AND PLAN: 1. Clostridium difficile colitis. Continue on oral vancomycin and lactobacillus. 2. Anxiety disorder. Stable. Continue on p.r.n. Xanax. 3. Lice. Resolved. 4. Benign prostatic hypertrophy. Continue on Flomax. 5. Right leg wound. Continue with wound care. 6. Chronic obstructive pulmonary disease. Continue on bronchodilator therapy. 7. Insomnia. Continue on trazodone. 8. Continue with physical therapy. cc: Ashlee Miner MD
[2019-04-18] MEDS: SANTYL OINT TOP SCH (12:57)
[2019-04-18] MEDS: DESYREL PO SCH (22:00)
[2019-04-18] MEDS: ROBAXIN PO SCH (22:00)
[2019-04-18] MEDS: LOVENOX SUBQ SCH (22:05)
[2019-04-19] MEDS: DUONEB (A & A) INH SCH ×5 (00:03→23:16)
[2019-04-19] MEDS: CARDIZEM PO SCH ×4 (03:11→21:27)
[2019-04-19] MEDS: VANCOCIN PO SCH ×4 (03:11→21:27)
[2019-04-19] MEDS: PRILOSEC PO SCH (06:14)
[2019-04-19 07:47] LABS: HEMATOCRIT 37.6 % (42.0-52.0); HEMOGLOBIN 12.2 g/dL (14.0-18.0); MCH 27.5 PG (27-31); MCHC 32.4 g/dL (33-37); MCV 84.9 FL (81-99); RBC 4.43 XMIL (4.7-6.1); RDW 15.9 % (11.5-14.5); WBC 10.54 X1000 (4.8-10.8)
[2019-04-19 08:09] LABS: AGAP 4; BUN 8 mg/dL (8-22); CALCIUM 8.3 mg/dL (8.8-10.2); CHLORIDE 106 mmol/L (98-107); COSMO 275; CREATININE 0.5 mg/dL (0.7-1.2); ESTIMATED GFR > 60; GLUCOSE 90 mg/dL (70-104); PHOSPHORUS 2.8 mg/dL (2.7-4.5); POTASSIUM 3.8 mmol/L (3.5-5.1); SODIUM 139 mmol/L (136-145); TCO2 29 mmol/L (25-35)
[2019-04-19] MEDS: CULTURELLE PO SCH ×2 (09:44→21:26)
[2019-04-19] MEDS: NORCO-10 PO PRN ×2 (09:44→18:16)
[2019-04-19] MEDS: NEURONTIN PO SCH ×3 (09:44→21:27)
[2019-04-19] MEDS: FLOMAX PO SCH (09:44)
[2019-04-19] MEDS: SANTYL OINT TOP SCH (09:45)
[2019-04-19] MEDS: QUESTRAN LIGHT PO SCH ×2 (09:45→21:26)
[2019-04-19] MEDS: SPIRIVA INH SCH (09:50)
[2019-04-19] MEDS ORDERED: LASIX PO PRN (12:04)
[2019-04-19] MEDS ORDERED: ELAVIL PO PRN (12:04)
[2019-04-19] MEDS ORDERED: ANUSOL-HC CREAM PR SCH (12:15)
[2019-04-19] MEDS ORDERED: NEURONTIN PO SCH (13:00)
[2019-04-19] MEDS: KENALOG 0.1% CREAM TOP SCH ×2 (15:32→21:37)
[2019-04-19] MEDS: XANAX PO PRN (15:33)
--- NOTE | 2019-04-19 16:30 | PROGRESS NOTE ---
DATE: 04/19/2019 SUBJECTIVE: The patient is resting comfortably. He does have a rash on his leg that is erythematous, but he states that it is not itchy. OBJECTIVE: Vital Signs: Temperature 98 degrees, blood pressure 141/75, heart rate 91, respirations 18, O2 saturation 98% on room air. General: This is a chronically ill-appearing, morbidly obese male lying in bed in no acute distress. Heart: S1, S2 normal. Regular rate and rhythm. Lungs: Equal air entry bilaterally. No wheezing. No rales. No rhonchi. Abdomen: Positive bowel sounds. Soft, nontender, nondistended. Extremities: Trace edema in the right leg. The right leg is wrapped in a clean dry dressing. LABS: White blood cell count 10, hemoglobin 12, hematocrit 37, platelets 344,000. Sodium 139, potassium 3.8, chloride 106, CO2 29, BUN 8, creatinine 0.5, glucose 90. ASSESSMENT AND PLAN: 1. Clostridium difficile colitis. Improved. We will continue on oral vancomycin and lactobacillus. Today is day 6 of treatment. 2. Leg rash. Will order triamcinolone cream. 3. Anxiety disorder. Stable. 4. Lice. Resolved. 5. Benign prostatic hypertrophy. Continue on Flomax. 6. Right leg wound. Continue with wound care. 7. Chronic obstructive pulmonary disease. Stable. Continue with bronchodilator therapy. 8. Insomnia. Continue on trazodone. 9. Continue with physical therapy. 10. Disposition. Hopefully, the patient can be discharged home tomorrow. cc: Ashlee Miner MD MTDD
[2019-04-19] MEDS ORDERED: SINGULAIR PO SCH (21:00)
[2019-04-19] MEDS: DESYREL PO SCH (21:27)
[2019-04-19] MEDS: ROBAXIN PO SCH (21:27)
[2019-04-19] MEDS: BUSPAR PO SCH (21:27)
[2019-04-19] MEDS: LOVENOX SUBQ SCH (21:39)
[2019-04-20] MEDS: NORCO-10 PO PRN (00:16)
[2019-04-20] MEDS: VANCOCIN PO SCH ×2 (01:04→09:05)
[2019-04-20] MEDS: CARDIZEM PO SCH ×2 (03:40→09:05)
[2019-04-20] MEDS: DUONEB (A & A) INH SCH ×2 (05:01→10:06)
[2019-04-20] MEDS: PRILOSEC PO SCH (06:27)
[2019-04-20 06:59] LABS: HEMATOCRIT 35.9 % (42.0-52.0); HEMOGLOBIN 11.6 g/dL (14.0-18.0); MCH 27.6 PG (27-31); MCHC 32.3 g/dL (33-37); MCV 85.3 FL (81-99); MPV 9.8 FL (7.4-10.4); RBC 4.21 XMIL (4.7-6.1); RDW 15.9 % (11.5-14.5); WBC 9.72 X1000 (4.8-10.8)
[2019-04-20 07:26] LABS: AGAP 8; BUN 8 mg/dL (8-22); CALCIUM 8.4 mg/dL (8.8-10.2); CHLORIDE 107 mmol/L (98-107); COSMO 279; CREATININE 0.6 mg/dL (0.7-1.2); ESTIMATED GFR > 60; GLUCOSE 82 mg/dL (70-104); PHOSPHORUS 3.2 mg/dL (2.7-4.5); POTASSIUM 3.4 mmol/L (3.5-5.1); SODIUM 141 mmol/L (136-145); TCO2 26 mmol/L (25-35)
[2019-04-20 07:42] VITALS: BP 141/75
[2019-04-20] MEDS ORDERED: KLOR-CON PO ONE (08:05)
[2019-04-20] MEDS: BUSPAR PO SCH (09:05)
[2019-04-20] MEDS: CULTURELLE PO SCH (09:05)
[2019-04-20] MEDS: FLOMAX PO SCH (09:05)
[2019-04-20] MEDS: NEURONTIN PO SCH (09:05)
[2019-04-20] MEDS: QUESTRAN LIGHT PO SCH (09:05)
[2019-04-20] MEDS: SPIRIVA INH SCH (10:20)
[2019-04-20] MEDS: KENALOG 0.1% CREAM TOP SCH (11:44)
[2019-04-20] MEDS: SANTYL OINT TOP SCH (11:44)
--- NOTE | 2019-04-21 11:37 | Extremity Venous Study ---
PROCEDURE NAME: Venous U/S Right Leg - 04/18/2019 [employer]AT [employer]KER: Jodi. REQUESTING PHYSICIAN: Dr. Miner. INDICATIONS: Status post debridement of ulcer, pain. FINDINGS: The deep superficial veins of the right lower extremity were visualized along their course. All veins appear compressible with forward flow, and no evidence of intraluminal thrombus. SUMMARY: No deep or superficial venous thrombosis seen in the right lower extremity. cc: MD Ashlee Ledesma MD
== END 2019-04-20 15:26 | disposition home health service (06) | DRG 372 ==
LOC: SUPCPDRO → ED 07:26 → 4N 12:48 → SUATTDRO 12:48 → 4N 16:34 → 3S 17:54 → 3N 04-15 14:14
PROVIDERS: ATTEND Internal Medicine
CPT/HCPCS: 51701; 71010; 71045; 74019; 74020; 74177; 80048; 80053; 81001; 82550; 83605; 83735; 84100; 84132; 84484; 85025; 85027; 85610; 85730; 87040; 87324; 87449; 93005; 93010; 93971; 94640; 94760; 94761; 96361; 96365; 96375; 97110; 97162; 97167; 97530; 97535; 99285; A9270; J1650; J1956; J2405; J3475; J3480; J7030; J7040; P9612; Q9967; S0030